=== PATIENT | female | born 1965 | race Caucasian/White ===

== ENCOUNTER 2016-07-30 10:38 | Emergency (ER) | payer BC ==
--- NOTE | 2016-07-30 11:52 | RAD ---
HISTORY: Knee pain, left knee pain, fall COMPARISONS: July 02, 2015 VIEWS: 2, Frontal and lateral views of the left knee FINDINGS: BONE DENSITY: Normal. BONES: There is no displaced fracture. JOINTS: There is mild to moderate tricompartmental osteoarthritis. There is no suprapatellar joint effusion or lipohemarthrosis. ALIGNMENT: There is no dislocation. SOFT TISSUES: Unremarkable. OTHER FINDINGS: None. IMPRESSION: OSTEOARTHRITIS. NO ACUTE OSSEOUS INJURY. IF SYMPTOMS PERSIST, RECOMMEND REPEAT IMAGING.
--- NOTE | 2016-07-30 11:55 | RAD ---
INDICATION: Left hip pain COMPARISON: None TECHNIQUE: An AP view of the pelvis and AP views of the hip in neutral and abducted position were obtained FINDINGS: Bones: There are no acute bony findings. Joint spaces: There is minor symmetric narrowing about the hip joint spaces with mild convexity along the lateral femoral head and neck predisposing to impingement. There is minor spurring about the medial aspect of the femoral head. SI joints/symphysis: The SI joints and symphysis are intact. Other: None IMPRESSION: MILD OSTEOARTHRITIC CHANGES ABOUT THE LEFT HIP.
[2016-07-30 12:54] VITALS: BP 153/75
--- NOTE | 2016-07-30 21:06 | ED ---
Jez Snowden Billy, scribed for Chino Herron MD on 07/30/16 at 1050 . Lower Extremity - HPI Summary HPI Summary: Patient is a 51 year-old female coming to [facility] for evaluation of left hip pain after a simple mechanical fall approximately 20 minutes prior to arrival to the ED. She states that she slipped on mud and hit her hip on the pavement. Denies LOC. The pain radiates from the left hip to her knee and ankle. Range of motion is limited secondary to pain. Severity 8/10. - History of Current Complaint Chief Complaint: EDExtremityLower Stated Complaint: FALL,LEFT HIP PAIN Time Seen by Provider: 07/30/16 10:43 Hx Obtained From: Patient Hx Last Menstrual Period: November - going through menopause Mechanism Of Injury: Fall From A Standing Position Onset of Pain: Immediate Onset/Duration: Minutes Severity Initially: Moderate Severity Currently: Moderate Pain Intensity: 8 Pain Scale Used: 0-10 Numeric Timing: Constant Location: Is Discrete @ - Left hip radiating to knee and ankle Aggravating Factor(s): Movement Alleviating Factor(s): Rest - Allergies/Home Medications Allergies/Adverse Reactions: Allergies Allergy/AdvReac Type Severity Reaction Status Date / Time No Known Allergies Allergy Unverified 07/02/15 15:23 PMH/Surg Hx/FS Hx/Imm Hx Endocrine/Hematology History: Denies: Hx Anticoagulant Therapy, Hx Diabetes, Hx Thyroid Disease Cardiovascular History: Denies: Hx Hypertension, Hx Pacemaker/ICD Respiratory History: Denies: Hx Asthma, Hx Chronic Obstructive Pulmonary Disease (COPD) GI History: Denies: Hx Ulcer Sensory History: Denies: Hx Hearing Aid Psychiatric History: Denies: Hx Panic Disorder - Surgical History Surgery Procedure, Year, and Place: CHolecystectomy 2007. tubal ligation. C SECTION X5 Infectious Disease History: Denies: Hx Hepatitis, Hx Human Immunodeficiency Virus (HIV), History Other Infectious Disease, Traveled Outside the [place] in Last 30 Days - Family History Family History: Mother with history of hypertension. Father at age 60 with history of brain tumor and stroke. The patient has four siblings, come with history of hypertension. - Social History Alcohol Use: None Substance Use Type: Reports: None Smoking Status (MU): Former Smoker Review of Systems Negative: Fever Positive: Arthralgia All Other Systems Reviewed And Are Negative: Yes Physical Exam - Summary Physical Exam Summary: VITAL SIGNS: Reviewed. GENERAL: Patient is an obese female who is lying comfortable in the stretcher. Patient is not in any acute respiratory distress. HEAD AND FACE: No signs of trauma. No ecchymosis, hematomas or skull depressions. No sinus tenderness. EYES: PERRLA, EOMI x 2, No injected conjunctiva, no nystagmus. EARS: Hearing grossly intact. Ear canals and tympanic membranes are within normal limits. MOUTH: Oropharynx within normal limits. NECK: Supple, trachea is midline, no adenopathy, no JVD, no carotid bruit, no c- spine tenderness, neck with full ROM. CHEST: Symmetric, no tenderness at palpation LUNGS: Clear to auscultation bilaterally. No wheezing or crackles. CVS: Regular rate and rhythm, S1 and S2 present, no murmurs or gallops appreciated. ABDOMEN: Soft, non-tender. No signs of distention. No rebound no guarding, and no masses palpated. Bowel sounds are normal. EXTREMITIES: Left hip did not show any ecchymosis, deformity, or visible shortening of left leg. Patient's pulses in the lower extremities are positive and strong. There is decreased ROM in the left hip secondary to pain. NEURO: Alert and oriented x 3. No acute neurological deficits. Speech is normal and follows commands. SKIN: Dry and warm Triage Information Reviewed: Yes Vital Signs On Initial Exam: Initial Vital Signs Temp 99.5 F 07/30/16 10:46 Pulse 80 07/30/16 10:46 Resp 20 07/30/16 10:46 BP 180/94 07/30/16 10:46 Pulse Ox 98 07/30/16 10:46 Vital Signs Reviewed: Yes Diagnostics - Laboratory Lab Statement: Any lab studies that have been ordered have been reviewed, and results considered in the medical decision making process. - Radiology Hip/Pelvis XRay Xray Interpretation: No Acute Changes Radiology Interpretation Completed By: Radiologist - MILD OSTEOARTHRITIC CHANGES ABOUT THE LEFT HIP. Knee XRay Xray Interpretation: No Acute Changes Radiology Interpretation Completed By: Radiologist - NO ACUTE OSSEOUS INJURY. IF SYMPTOMS PERSIST, RECOMMEND REPEAT IMAGING. Re-Evaluation - Re-Evaluation First Eval Re-Evaluation Time: 12:07 Comment: Imaging reviewed. Lower Extremity Course/Dx - Course Assessment/Plan: Patient is a 51 year-old female coming to [facility] for evaluation of left hip pain after a simple mechanical fall approximately 20 minutes prior to arrival to the ED. She states that she slipped on mud and hit her hip on the pavement. Denies LOC. The pain radiates from the left hip to her knee and ankle. Range of motion is limited secondary to pain. Severity 8/10. X-rays of the knee and pelvis show no acute osseous injury, no fractures or dislocation. The patient declined any pain medications. After the x-rays were negative, the patient was ambulated with minimal pain. The patient reports that the pain is only 1/10, and she has a good and steady walk. At this point I discussed my findings and test results with the patient and the need to follow up with PCP. She was instructed to return to the ED if the pain increases or if she develops fever, nausea, vomiting, or any other symptoms. She understands and agrees. - Diagnoses Provider Diagnoses: Contusion, hip, Hip pain Discharge - Discharge Plan Condition: Stable Disposition: HOME Patient Education Materials: Hip Contusion (ED) Referrals: Juan C Kim, POWER SUPERINTENDENT [Primary Care Provider] - The documentation as recorded by the Jez hagen Billy accurately reflects the service I personally performed and the decisions made by me, Chino Herron MD.
== END 2016-07-30 12:53 | disposition home or self-care (01) ==
LOC: ED 10:38
DX: S70.00XA Contusion of unspecified hip, initial encounter (principal); M25.552 Pain in left hip; M25.50 Pain in unspecified joint; Z87.891 Personal history of nicotine dependence; W19.XXXA Unspecified fall, initial encounter; Y93.9 Activity, unspecified; Y92.9 Unspecified place or not applicable; Y99.9 Unspecified external cause status
CPT/HCPCS: 99282

== ENCOUNTER 2018-02-25 10:09 | Inpatient (IN) | payer BC ==
--- NOTE | 2018-02-17 17:06 | HP ---
HISTORY AND PHYSICAL: DATE OF ADMISSION/SURGERY: 02/26/18 DATE OF OFFICE VISIT: 02/17/18 SURGEON: Kristi White MD * (DICTATED BY ADAIR RUIZ) PROCEDURE: Right total knee arthroplasty. CHIEF COMPLAINT: Right knee pain. HISTORY OF PRESENT ILLNESS: Ms. Murphy is a 52-year-old female with continued complaints of right knee pain. She has failed conservative treatment and elected to proceed with a right total knee arthroplasty. PAST MEDICAL HISTORY: PTSD, anxiety, Lima's esophagus, and high cholesterol. PAST SURGICAL HISTORY: x5 and cholecystectomy. CURRENT MEDICATIONS: 1. Diclofenac sodium gel. 2. Sucralfate 1 g daily. 3. Oxycodone 5 mg as needed. 4. Pantoprazole sodium 40 mg daily. 5. Baclofen 10 mg daily. 6. Valium 10 mg. ALLERGIES: No known drug allergies. FAMILY HISTORY: Diabetes and stroke. SOCIAL HISTORY: She is a 52-year-old female. She lives with her . She does not smoke or use drugs. REVIEW OF SYSTEMS: A complete 14-point review of systems was reviewed with the patient. It was positive for GERD. She denies history of DVT, PE, hepatitis, HIV, or anesthesia problems. PHYSICAL EXAMINATION GENERAL: She is well developed, well nourished, in no acute distress. VITAL SIGNS: She stands 5 feet 6 inches tall, weighs 265 pounds. Her blood pressure is 128/88 and heart rate is 60. HEENT: Normocephalic, atraumatic. NECK: Supple. No palpable lymph nodes. PULMONARY: The lungs are clear to auscultation bilaterally. CARDIO: Regular rate and rhythm. Strong S1, S2. ABDOMEN: Soft, nontender, nondistended. NEUROLOGICAL: She is alert and oriented x3. MUSCULOSKELETAL: Right lower extremity: The skin is intact. There are no open wounds or abrasions. There is some tenderness over the medial and lateral joint line. There is some moderate joint effusion. Range of motion is 10 to 120 degrees of flexion with patellofemoral crepitus. She has 2+ dorsalis pedis pulse, intact sensation and her lower extremity muscle group strengths are intact at 5/5. ASSESSMENT AND PLAN: Ms. Murphy is a 52-year-old female with end-stage osteoarthritis of the right knee. She has failed conservative treatment and elected to proceed with a right total knee arthroplasty. Her surgery is scheduled for 02/26/[address] White discussed the risks and benefits of the surgery at today's visit and all of her questions were answered. She will follow up with Dr. White 2 weeks after the surgery. ADAIR RUIZ [id number]/[id number] #: [id number] [facility]IAL HOSPITALEdgardo
[~2018-02-25 10:09] MED LIST: Buffered Lidocaine 0.9% SYRIN* 5 ML/SYR SYRINGE INTRADERM ONE; Lactated Ringers 1000 ML Bag* 1,000 ML IV SCH
--- OUTSIDE RECORDS SUMMARY | 2018-02-25 10:12 | XMS REPORT | Continuity of Care Document ---
:1965 External Reference #:[id number] Author Name FABIEN Gonzalez Address [address] [place] [address] Care Team Providers Name Role Phone FABIEN Gonzalez Care Team Information Sales Associate Fishing Unavailable Payers Type Date Identification Numbers Payment Provider Subscriber Effective: Policy Number: [id number] Chaka CEDILLO [employer] 2017 Group Name: [place] [address] PayID: [id number] DELILAH Alcantara [address] Expires: 2017 Policy Number: [id number] Chaka JUVENTINO [employer] Group Name: Shaina [address] PayID: [id number] DELILAH Alcantara [address] Onset: 2009 Policy Number: [id number] [employer] Madelaine Sims [place]ID: [id number] [place] [address] Effective: 2010 Policy Number: Medicaid/Computer [employer] Madelaine Sims [id number] Expires: 2015 Group Name: 1 [id number] PayID: [id number] [place] [address] Advance Directives Description No Information Available Problems Description No Information Family History Date Family Member(s) Problem(s) Comments Father Alcoholism Father Hypertension Father CVA Father due to Stroke () - age 57 Father due to () Alcoholism Mother Obesity Mother Osteoporosis Mother CVA Mother Atrial Fibrillation : Mother due to Stroke Infections from wounds (03/2011) after a fall during a stroke, sepsis.... age 73 Mother Depression Children 3 Daughter1: cholecystectomy Daughter2: Anemia with iron transfusions Daughter3: Possible AVM? Siblings 3 Sister1: Cardiac ablation for AFib Brother1: Hip replacement Brother2: drug addict Social History Type Date Description Comments Sex Unknown Marital Status Lives With Spouse Diet Healthy, Well Balanced eats a variety of foods. 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 Uses CBD oil 1-2X/day as well which helps. Enjoy Exercising Enjoys exercising doing exercises prior to surgery Allergies, Adverse Reactions, Alerts Description No Known Drug Allergies Medications Medication Date Status Form Strength Qnty SIG Indications Ordering Provider Nystatin 02/11 Active Cream [id number] 30gm apply small Shawnt / amount to Oralia Kim, rash three RECREATION CLERK-C times daily until resolved Oxycodone HCL 02/05 Active Tablets 5mg 45tab 1 tab by M17.0 s mouth q4hr Oralia Kim, as needed RECREATION CLERK-C pain Diazepam 01/19 Active Tablets 10mg 60tab take 1 F41.9 s tablet twice Oralia Kim, daily for RECREATION CLERK-C anxiety/ptsd Voltaren 07/30 Active Gel 1% 100un apply a pea M17.12 its sized amount Oralia Kim, of gel to RECREATION CLERK-C each knee four times a day if needed for pain Sucralfate Active Tablets 1gm 60tab take one Shawnti s tablet by Oralia Kim, twice daily RECREATION CLERK-C on an empty stomach Pantoprazole Active Tablets 40mg 60tab one by mouth Shawnti / DR s twice daily Oralia Kim RECREATION CLERK-C Baclofen Active Tablets 5mg 60tab one by mouth Shawnti / s twice daily Oralia Kim RECREATION CLERK-C Hydrocodone-Acet 02/03 Hx Tablets 5-325mg 45tab 1 by mouth M17.0 Shawnti aminophen /2017 s every 4 Oralia Kim, - hours if RECREATION CLERK-C 02/05 needed for pain Valium 12/30 Hx Tablets 5mg 30tab take 1 F41.9 Brian s tablet every [place] - 8 hours for MD 01/19 severe anxiety Clonazepam 11/27 Hx Tablets 0.5mg 60tab take one F41.9 Shawnti s tablet by Oralia Kim, - mouth twice RECREATION CLERK-C 01/19 a day for anxiety; maximum daily dose=2 Tramadol HCL 09/04 Hx Tablets 50mg 90tab take one M17.0 Shawnti s tablet by Oralia Kim, - mouth every RECREATION CLERK-C 02/03 four hours /2017 if needed for pain Naprosyn 02/19 Hx Tablets 500mg 30tab 1 by mouth M17.9 Shawnti s twice a day Oralia Kim, - for knee [employer]CREATION CLERK-C 09/03 pain Omeprazole 02/19 Hx Capsules 20mg 90cap 1 by mouth M17.[address] s every day Oralia Kim, - RECREATION CLERK-C 09/04 Xanax 02/19 Hx Tablets 1mg 30tab take one F41.9 nt s tablet by Oralia Kim, - mouth twice RECREATION CLERK-C 11/27 a day needed for anxiety maximum daily dose=2 Zofran Odt 02/18 Hx Tablets 4mg 30tab dissolve one Dispers s tab in mouth Oralia Kim, - every 6-8 RECREATION CLERK-C 08/ hours needed nausea Amoxicillin/Clav 02/18 Hx Tablets 875-125mg 20tab 1 by mouth J01.90 wnti ulanate s twice a day Oralia Kim, Potassium - for 10 days RECREATION CLERK-C 02/28 infection Tramadol HCL 07/30 Hx Tablets 50mg 60tab Take One M17.12 nt s Tablet By Oralia Kim, - Mouth Four RECREATION CLERK-C 05/09 Times A Day as Needed For Pain; Maximum Daily Dose=4 Minocycline HCL 04/04 Hx Capsules 50mg 60cap 1 po bid for 695.3 s one week Oralia Kim, - then take po RECREATION CLERK-C 02/18 Potassium 05/09 Hx Tablets 10Meq 60tab 2 po daily Shawnti Chloride ER s while on Oralia Julio, - lasix(furose RECREATION CLERK-C 04/04 mide) /2011 Furosemide 05/07 Hx Tablets 20mg 60tab 1 or 2 po 782.3 Shawnt s daily for Oralia Kim, - swelling RECREATION CLERK-C 02/18 Percocet 04/23 Hx Tablets 10-325mg 60six 1 po q4-6hr 724.2 ty prn pain Oralia Julio, - RECREATION CLERK-C 04/04 Senna S 04/23 Hx Tablets 8.6-50mg 60tab 1 or 2 po s bid for Oralia Kim, - constipation RECREATION CLERK-C 04/04 Cyclobenzaprine 04/19 Hx Tablets 10mg 60tab take 1/2 to 724.2 Shawnti HCL s 1 tablet Oralia Julio, - every 8 RECREATION CLERK-C 02/18 hours needed for muscle spasm. Gabapentin 04/08 Hx Capsules 300mg 60cap 1 po tid for 724.2 Shawnt s nerve pain Oralia Kim, - RECREATION CLERK-C 04/04 Prednisone 04/08 Hx Tablets 10mg 42tab take 6 tabs 724.2 s by mouth Oralia Kim, - today and RECREATION CLERK-C 04/23 tomorrow decrease by one tab every other day then 10mg by mouth for two days, then stop No Work 03/07 Hx unable to 724.2 work due to Oralia Julio, - back injury RECREATION CLERK-C 03/22 Physical Therapy 03/07 Hx eval and 724.2 nt treat low Oralia Kim, - back and RECREATION CLERK-C 03/22 sciatic pain, mild radiculopath y Wellbutrin XL 03/07 Hx Tablets 150mg 30tab 1 po qd for 724.2 ER 24HR s depression, Oralia Kim, - take with RECREATION CLERK-C 04/04 Cy Hydrocodone/Acet 02/11 Hx Tablets 5-325mg 40for 1 or 2 po 724.2 Shawnti aminophen ty q6hr prn Oralia Kim, - severe pain RECREATION CLERK-C 04/23 Return To Work 01/15 Hx may return 724.2 to work Oralia Kim, - without RECREATION CLERK-C 03/22 Cymbalta 01/[address] 60mg 90cap 1 po qd 724.2 Part s Oralia Kim, - RECREATION CLERK-C 04/04 Return To Work 12/06 Hx light duty, no lifting Oralia Kim, - over 20 lbs RECREATION CLERK-C 01/15 Flexeril 11/22 Hx Tablets 10mg 60tab 1/2 to 1 724.2 s pill q8hr Oralia Kim, - prn muscle RECREATION CLERK-C 04/19 Cymbalta 11/[address] 30mg 90cap one po daily 724.2 Part s for back Oralia Kim, - pain RECREATION CLERK-C 01/01 Xanax 11/08 Hx Tablets 0.5mg 60tab 1/2 to 1 by F41.9 s mouth twice Oralia Kim, - a day as RECREATION CLERK-C 02/19 anxiety Hydrocodone/Acet 11/08 Hx Tablets 5-325mg 40for 1 or 2 po 724.2 wnti aminophen ty q6hr prn Oralia Kim, - severe pain RECREATION CLERK-C 12/06 Naprosyn Ec 11/08 Hx Tablets 500mg 60tab 1 po bid 724.2 nt s with food Oralia Kim, - for pain, RECREATION CLERK-C 04/04 stop taking if stomach pain develops No Work 11/08 Hx unable to 724.2 work due to Oralia Kim, - injury, will RECREATION CLERK-C 03/07 evaluate 2 weeks Out Of Work 10/31 Hx Consulted dx Lumbago Rufina Until PT Erickson Cotto, 03/22 Need M.D. PhysicalTher apy Re-eval before Nov.14 [place] 10/29 Hx Tablets 5-325mg 28tab one to two Montserrat s tabs po q 12 Mick, - hrs prn M.DAbiola, 12/06 severe pain R.D. /2009 Out Of Work 10/26 Hx Patient has Filiberto Until Nov 01 a Physical Carmen - Therapy M.DAbiola 03/22 appointment /10/30 and has a refferal to the pain clinic [facility] 10/26 Hx Tablets 5mg 30tab i to ii tabs s po tiLashell Cuevas M.D. 11/22 Ibuprofen 10/19 Hx 724.2 Helen /2010 Luis A - PA-C 11/08 No Work Until 10/19 Hx 724.2 Filiberto Oct 26 Lashell Morales M.D. 11/08 Physical Therapy 10/19 Hx eval and 724.2 [place] /2009 treat low R. Storm, - back RECREATION CLERK-C 03/22 pain/strain, sciatica One Cane 10/19 Hx need to use 724.2 cane untill Carmen, - back pain M.D. 03/22. /2010 Amoxicillin 03/31 Hx Tablets 875mg 28tab One PO bid 461.8 Johanna s For 14 Days A. Lashell Barton, 10/29 F.N.P.C. /2009 Diazepam 08/02 Hx 10mg 30uni use 1 tab qd ts prn Lashell Alexandra M.DAbiola 10/29 Effexor XR 08/02 Hx Capsules 75mg 60cap Two Tabs qd s Lashell Alexandra M.DAbiola 03/31 Paxil 05/17 Hx Tablets 20mg 60tab One To Two s Tabs A Day Lashell Alexandra M.DAbiola 03/31 Physical Exam 04/15 Hx Patient Has Zuleika Been Healthy Ibrahima, - In The Past M.D. 03/31 And Valium 04/11 Hx Tablets 5mg 20tab 1-2 tabs bid s Cruzito, - CHILD CARE ASSISTANT 10/29 Paxil 02/16 Hx 20mg 30uni use 1/2 to 1 ts tab a day Lashell Alexandra M.D. 03/31 Ativan 02/10 Hx Tablets O.5 mg 8tabs 1 Tab PO bid prn Anxiety P. - Blegen, 03/31 M.DAbiola /2005 Omeprazole Hx Capsules 40mg 0ne by mouth M17.9 Unknown /0000 DR bid before - meals 10/15 Medications Administered in Office Medication Date Status Form Strength Qnty SIG Indications Ordering Provider TB,Intradermal Administered Injection Lab and (PPD, [place]) 003 Office Services Immunizations CPT Code Status Date Vaccine Lot # [id number] Given 02/19/2016 Tdap (Adacel) [id number] 20985 Given 12/02/2002 Meningococcal Polysaccharide Vaccine 87232 Given 12/02/2002 Meningococcal Polysaccharide Vaccine 03444 Given 11/28/2002 Hep B Vaccine Adult, 3 Dose age >20 yrs 04951 Refused 02/19/2016 Influenza Virus Vaccine, Quadrivalent, 3 Yr > Quad , Preserv Free Vital Signs Date Vital Result Comment 02/11/2018 11:41am Weight 268.00 lb Weight 121.565 kg BP Systolic 118 mmHg BP Diastolic 76 mmHg Heart Rate 84 /min Body Temperature 97.9 F Respiratory Rate 16 /min Height 66.5 inches 5'6.50" BMI (Body Mass Index) 42.6 kg/m2 O2 % BldC Oximetry 97 % 01/19/2018 2:07pm Weight 271.00 lb Weight 122.926 kg BP Systolic 120 mmHg BP Diastolic 82 mmHg Heart Rate 60 /min Body Temperature 98.6 F Respiratory Rate 16 /min Height 67 inches 5'7" BMI (Body Mass Index) 42.4 kg/m2 O2 % BldC Oximetry 98 % 12/30/2017 4:48pm Weight 275.00 lb Weight 124.740 kg BP Systolic 164 mmHg BP Diastolic 80 mmHg Heart Rate 77 /min Body Temperature 97.3 F Respiratory Rate 16 /min O2 % BldC Oximetry 96 % 11/27/2017 1:47pm Weight 278.00 lb Weight 126.101 kg BP Systolic 122 mmHg BP Diastolic 80 mmHg Heart Rate 74 /min Body Temperature 98.2 F Respiratory Rate 16 /min Height 67 inches 5'7" BMI (Body Mass Index) 43.5 kg/m2 O2 % BldC Oximetry 96 % 09/10/2017 8:47am Weight 289.00 lb Weight 131.090 kg BP Systolic 132 mmHg BP Diastolic 80 mmHg Heart Rate 88 /min Body Temperature 97.6 F Respiratory Rate 16 /min Height 66.5 inches 5'6.50" BMI (Body Mass Index) 45.9 kg/m2 09/04/2017 10:36am Weight 290.00 lb Weight 131.544 kg BP Systolic 126 mmHg BP Diastolic 96 mmHg Heart Rate 66 /min Body Temperature 98.1 F Respiratory Rate 20 /min Height 67 inches 5'7" BMI (Body Mass Index) 45.4 kg/m2 O2 % BldC Oximetry 96 % 06/22/2017 10:59am Weight 304.00 lb Weight 137.894 kg BP Systolic 134 mmHg BP Diastolic 90 mmHg Heart Rate 72 /min Body Temperature 97.7 F Respiratory Rate 16 /min O2 % BldC Oximetry 98 % 06/05/2017 1:45pm Weight 293.00 lb Weight 132.905 kg BP Systolic 138 mmHg BP Diastolic 90 mmHg Heart Rate 74 /min Body Temperature 97.7 F Respiratory Rate 16 /min Height 67 inches 5'7" BMI (Body Mass Index) 45.9 kg/m2 O2 % BldC Oximetry 95 % 02/19/2017 1:55pm Weight 295.00 lb Weight 133.812 kg BP Systolic 140 mmHg BP Diastolic 100 mmHg Heart Rate 72 /min Body Temperature 98.0 F Respiratory Rate 14 /min Height 66.5 inches 5'6.50" BMI (Body Mass Index) 46.9 kg/m2 02/19/2016 2:13pm Weight 291.00 lb Weight 131.998 kg BP Systolic 140 mmHg BP Diastolic 94 mmHg Heart Rate 91 /min Body Temperature 98.3 F Respiratory Rate 12 /min Height 66 inches 5'6" BMI (Body Mass Index) 47.0 kg/m2 O2 % BldC Oximetry 98 % 08/17/2015 9:43am Weight 294.00 lb Weight 133.358 kg BP Systolic 148 mmHg BP Diastolic 94 mmHg Heart Rate 76 /min Body Temperature 98.1 F 07/31/2015 11:00am Weight 300.00 lb Weight 136.080 kg Heart Rate 83 /min Body Temperature 98.8 F Height 67 inches 5'7" BMI (Body Mass Index) 47.0 kg/m2 O2 % BldC Oximetry 98 % 04/04/2011 12:02pm Weight 298.00 lb Weight 135.173 kg BP Systolic 124 mmHg BP Diastolic 98 mmHg Heart Rate 76 /min 05/09/2010 11:10am Weight 287.00 lb Weight 130.183 kg BP Systolic 150 mmHg BP Diastolic 90 mmHg Heart Rate 72 /min 05/07/2010 3:54pm Weight 288.00 lb Weight 130.637 kg BP Systolic 140 mmHg BP Diastolic 90 mmHg Heart Rate 100 /min Body Temperature 98.3 F O2 % BldC Oximetry 99 % AT Room Air 04/23/2010 10:48am Weight 289.00 lb Weight 131.090 kg BP Systolic 138 mmHg BP Diastolic 100 mmHg Heart Rate 96 /min Body Temperature 97.8 F 04/08/2010 9:21am Weight 289.00 lb Weight 131.090 kg BP Systolic 140 mmHg BP Diastolic 100 mmHg Heart Rate 72 /min Body Temperature 98.8 F 03/07/2010 10:57am Weight 291.00 lb Weight 131.998 kg BP Systolic 154 mmHg BP Diastolic 94 mmHg Heart Rate 92 /min Body Temperature 98.2 F 01/15/2010 10:18am Weight 287.00 lb Weight 130.183 kg BP Systolic 140 mmHg BP Diastolic 100 mmHg Heart Rate 96 /min 12/06/2009 9:01am Weight 289.00 lb Weight 131.090 kg BP Systolic 150 mmHg BP Diastolic 80 mmHg Heart Rate 80 /min 11/22/2009 9:31am Weight 283.00 lb Weight 128.369 kg BP Systolic 150 mmHg BP Diastolic 98 mmHg Heart Rate 84 /min 11/08/2009 10:46am Weight 282.00 lb Weight 127.915 kg BP Systolic 120 mmHg BP Diastolic 82 mmHg Heart Rate 64 /min 10/19/2009 9:56am BP Systolic 130 mmHg BP Diastolic 110 mmHg Heart Rate 100 /min Body Temperature 99.2 F 03/31/2005 2:02pm Weight 231.00 lb Weight 104.782 kg BP Systolic 126 mmHg BP Diastolic 80 mmHg Heart Rate 86 /min 08/30/2002 2:40pm Weight 254.00 lb Weight 115.214 kg BP Systolic 130 mmHg BP Diastolic 82 mmHg 08/02/2002 2:43pm Weight 248.00 lb Weight 112.493 kg BP Systolic 120 mmHg BP Diastolic 70 mmHg 07/22/2002 1:53pm Weight 244.00 lb Weight 110.678 kg BP Systolic 120 mmHg BP Diastolic 80 mmHg Heart Rate 80 /min Respiratory Rate 18 /min Height 67 inches BMI (Body Mass Index) 38.2 kg/m2 Last Menstrual Period [id number] 05/17/2002 3:00pm Weight 229.00 lb Weight 103.874 kg BP Systolic 130 mmHg BP Diastolic 80 mmHg 05/02/2002 11:33am Weight 233.00 lb Weight 105.700 kg BP Systolic 130 mmHg BP Diastolic 70 mmHg 04/15/2002 2:35pm Weight 234.00 lb Weight 106.100 kg BP Systolic 102 mmHg BP Diastolic 68 mmHg Heart Rate 76 /min 03/18/2002 2:54pm Weight 227.00 lb Weight 103.000 kg BP Systolic 110 mmHg BP Diastolic 70 mmHg 02/16/2002 10:25am Weight 226.00 lb Weight 102.500 kg BP Systolic 124 mmHg BP Diastolic 80 mmHg 02/04/2002 9:29am Weight 224.00 lb Weight 101.600 kg BP Systolic 120 mmHg BP Diastolic 80 mmHg Results Test Date Facility Test Result H/L Range Note Urine Culture And [facility] Urine SEE RESULT 1 Sensitivities 8 [phone] Culture BELOW Inr/Protime [facility] Inr 0.89 N 0.77- 1.02 8 [phone] Laboratory test [facility] Partial 30.7 seconds N 26.0-36.3 finding 8 [phone] Thrombo Time PTT Urinalysis Profile [facility] Urine Color Yellow 8 [phone] Urine Appearance Cloudy Urine Specific Sharon 1.024 N 1.010-1.030 Urine pH 6.0 N 5-9 Urine Urobilinogen Negative Negative Urine Ketones Negative Negative Urine Protein Negative Negative Urine Leukocytes Negative Negative Urine Blood Negative Negative Urine Nitrite Negative Negative Urine Bilirubin Negative Negative Urine Glucose Negative Negative Type & Screen 02/17/2018 [facility] Patient Blood A Negative [phone] Type Antibody Screen NEGATIVE Liver Function 02/16/2018 [facility] Total Protein 6.5 g/dL N 6.4-8.9 Panel [phone] Albumin 3.9 g/dL N 3.2-5.2 Globulin 2.6 g/dL N 2-4 Albumin/Globulin Ratio 1.5 N 1-3 Total Bilirubin 0.40 mg/dL N 0.2-1.0 Direct Bilirubin 0.10 mg/dL N 0.03-0.18 Indirect Bilirubin 0.3 mg/dL N 0.3-1.0 Alkaline Phosphatase 177 U/L High 34-104 Alt 47 U/L N 7-52 Ast 31 U/L N 13-39 Iron & Iron Binding 02/16/2018 [facility] Iron 69 g /dL N 50-212 Capacity [phone] Unsaturated Iron Binding < 289 g/dL Total Iron Binding Capacity 304 g/dL N 250-450 Transferrin 217 mg/dL N 203-362 % Iron Saturation 23 % N 15-55 Hepatitis C Antibody 02/16/2018 [facility] HCV Index < 0.0 Index [phone] Hepatitis C Antibody Nonreactive Nonreactive Laboratory 02/16/2018 [facility] Ferritin 58.1 ng/mL N 11-307 test finding [phone] Inr/Protime 02/16/2018 [facility] Inr 0.89 N 0.77- 1.02 [phone] Laboratory 02/16/2018 [facility] Hepatitis B Negative Negative 2 test finding [phone] Core AB Total Hepatitis B 02/16/2018 [facility] Hepatitis B Not Immune Abnormal Immune Rosmery AB Titer [phone] Surface AB Hep B Surf AB Level < 3.10 mIU/mL >12 CBC Auto Diff 02/11/2018 [facility] White Blood 8.8 10^3/uL N 3.5-10.8 [phone] Count Red Blood Count 5.00 10^6/uL N 4.00-5.40 Hemoglobin 13.9 g/dL N 12.0-16.0 Hematocrit 42 % N 35-47 Mean Corpuscular Volume 83 fL N 80-97 Mean Corpuscular Hemoglobin 28 pg N 27-31 Mean Corpuscular HGB Conc 33 g/dL N 31-36 Red Cell Distribution Width 14 % N 10.5-15 Platelet Count 281 10^3/uL N 150-450 Mean Platelet Volume 10.0 fL N 7.4-10.4 Abs Neutrophils 4.7 10^3/uL N 1.5-7.7 Abs Lymphocytes 3.0 10^3/uL N 1.0-4.8 Abs Monocytes 0.6 10^3/uL N 0-0.8 Abs Eosinophils 0.4 10^3/uL N 0-0.6 Abs Basophils 0.1 10^3/uL N 0-0.2 Abs Nucleated RBC 0 10^3/uL Granulocyte % 53.7 % Lymphocyte % 34.4 % Monocyte % 6.4 % Eosinophil % 4.9 % Basophil % 0.6 % Nucleated Red Blood Cells % 0.1 Comp Metabolic Panel 02/11/2018 [facility] Sodium 137 mmol/L N 135-145 [phone] Potassium 4.4 mmol/L N 3.5-5.0 Chloride 105 mmol/L N 101-111 Co2 Carbon Dioxide 25 mmol/L N 22-32 Anion Gap 7 mmol/L N 2-11 Glucose 96 mg/dL N 70-100 Blood Urea Nitrogen 21 mg/dL N 6-24 Creatinine 1.00 mg/dL High 0.51-0.95 BUN/Creatinine Ratio 21.0 High 8-20 Calcium 9.5 mg/dL N 8.6-10.3 Total Protein 6.8 g/dL N 6.4-8.9 Albumin 3.9 g/dL N 3.2-5.2 Globulin 2.9 g/dL N 2-4 Albumin/Globulin Ratio 1.3 N 1-3 Total Bilirubin 0.50 mg/dL N 0.2-1.0 Alkaline Phosphatase 207 U/L High 34-104 Alt 56 U/L High 7-52 Ast 40 U/L High 13-39 Egfr Non- 58.2 >60 Egfr 70.5 >60 3 Laboratory test 08/12/2017 [facility] Surgical Interface SEE RESULT 4, 5 finding [phone] Order BELOW Laboratory test 08/12/2017 [facility] Clotest SEE RESULT 6 finding [phone] BELOW Lipid Profile 2017 [facility] Triglycerides 89 mg/dL 7 (Trig/Chol/HDL) [phone] Cholesterol 208 mg/dL 8 HDL Cholesterol 65.1 mg/dL 9 LDL Cholesterol 125 mg/dL 10 Laboratory test 2017 [facility] Bone Alkaline 12 g/L 11 finding [phone] Phosphatase, S Liver Function 2017 [facility] Total Protein 6.1 g/dL Low 6.4-8 Panel [phone] Albumin 3.7 g/dL N 3.2-5.2 Globulin 2.4 g/dL N 2-4 Albumin/Globulin Ratio 1.5 N 1-3 Total Bilirubin 0.30 mg/dL N 0.2-1.0 Direct Bilirubin 0.00 mg/dL Low 0.03-0.18 Alkaline Phosphatase 84 U/L N 34-104 Alt 25 U/L N 7-52 Ast 16 U/L N 13-39 Laboratory test 06/22/2017 [facility] TSH (Thyroid 4.70 mcIU/mL N 0.34-5.60 12 finding [phone] Stim Horm) Hemoglobin A1c (Glyco HGB) 5.9 % High 4.0-5.6 13 Rheumatoid Factor <10 IU/mL 0-14 14 Lipid Profile 06/22/2017 [facility] Triglycerides 363 mg/dL 15 (Trig/Chol/HDL) [phone] Cholesterol 326 mg/dL 16 HDL Cholesterol 63.6 mg/dL 17 LDL Cholesterol 190 mg/dL 18 Comp Metabolic 06/22/2017 [facility] Sodium 138 mmol/ L Low 139-145 Panel [phone] Potassium 5.0 mmol/L N 3.5-5.0 Chloride 99 mmol/L Low 101-111 Co2 Carbon Dioxide 33 mmol/L High 22-32 Anion Gap 6 mmol/L N 2-11 Glucose 89 mg/dL N 70-100 Blood Urea Nitrogen 19 mg/dL N 6-24 Creatinine 0.94 mg/dL N 0.51-0.95 BUN/Creatinine Ratio 20.2 High 8-20 Calcium 9.7 mg/dL N 8.6-10.3 Total Protein 7.1 g/dL N 6.4-8.9 Albumin 4.1 g/dL N 3.2-5.2 Globulin 3.0 g/dL N 2-4 Albumin/Globulin Ratio 1.4 N 1-3 Total Bilirubin 0.40 mg/dL N 0.2-1.0 Alkaline Phosphatase 223 U/L High 34-104 Alt 78 U/L High 7-52 Ast 39 U/L N 13-39 Egfr Non- 62.8 >60 Egfr 80.7 >60 19 CBC Auto 06/22/2017 [facility] White Blood 10.9 10^3/ uL High 3.5-10.8 Diff [phone] Count Red Blood Count 4.73 10^6/uL N 4.0-5.4 Hemoglobin 13.3 g/dL N 12.0-16.0 Hematocrit 40 % N 35-47 Mean Corpuscular Volume 85 fL N 80-97 Mean Corpuscular Hemoglobin 28 pg N 27-31 Mean Corpuscular HGB Conc 33 g/dL N 31-36 Red Cell Distribution Width 15 % N 10.5-15 Platelet Count 319 10^3/uL N 150-450 Mean Platelet Volume 9.4 um3 N 7.4-10.4 Abs Neutrophils 6.6 10^3/uL N 1.5-7.7 Abs Lymphocytes 3.0 10^3/uL N 1.0-4.8 Abs Monocytes 0.7 10^3/uL N 0-0.8 Abs Eosinophils 0.5 10^3/uL N 0-0.6 Abs Basophils 0.1 10^3/uL N 0-0.2 Abs Nucleated RBC 0 10^3/uL Granulocyte % 60.8 % N 38-83 Lymphocyte % 27.6 % N 25-47 Monocyte % 6.5 % N 0-7 Eosinophil % 4.4 % N 0-6 Basophil % 0.7 % N 0-2 Nucleated Red Blood Cells % 0.2 Urine DIP 06/05/2017 In House Lab Leukocytes neg Neg [phone] Urine Nitrites neg Neg Urobilinogen norm Norm Total Protein, Urine neg Neg Urine pH 5 5-6 Urine Blood neg Neg Specific Sharon 1.030 High 1.01-1.02 Urine Ketones neg Neg Urine Bilirubin neg Neg Urine Glucose norm Norm Laboratory 02/19/2016 [facility] TSH (Thyroid Stim 4.67 N 0.34-5.60 20 test finding [phone] Horm) mcIU/mL Lipid Profile 02/19/2016 [facility] Triglycerides 347 mg/dL N 21 (Trig/Chol/HDL [phone] ) Cholesterol 254 mg/dL N 22 HDL Cholesterol 46.4 mg/dL N 23 LDL Cholesterol 138 mg/dL N 24 Comp Metabolic Panel 02/19/2016 [facility] Sodium 134 mmol/L N 133-145 [phone] Potassium 4.2 mmol/L N 3.5-5.0 Chloride 101 mmol/L N 101-111 Co2 Carbon Dioxide 26 mmol/L N 22-32 Anion Gap 7 mmol/L N 2-11 Glucose 85 mg/dL N 70-100 Blood Urea Nitrogen 15 mg/dL N 6-24 Creatinine 0.97 mg/dL High 0.51-0.95 BUN/Creatinine Ratio 15.5 N 8-20 Calcium 9.7 mg/dL N 8.6-10.3 Total Protein 7.4 g/dL N 6.4-8.9 Albumin 4.1 g/dL N 3.2-5.2 Globulin 3.3 g/dL N 2-4 Albumin/Globulin Ratio 1.2 N 1-3 Total Bilirubin 0.40 mg/dL N 0.2-1.0 Alkaline Phosphatase 125 U/L High 34-104 Alt 31 U/L N 7-52 Ast 23 U/L N 13-39 Egfr Non- 60.8 N >60 Egfr 78.2 N >60 25 CBC Auto 02/19/2016 [facility] White Blood 12.5 10^3/ uL High 3.5-10.8 Diff [phone] Count Red Blood Count 5.30 10^6/uL N 4.0-5.4 Hemoglobin 14.9 g/dL N 12.0-16.0 Hematocrit 45 % N 35-47 Mean Corpuscular Volume 84 fL N 80-97 Mean Corpuscular Hemoglobin 28 pg N 27-31 Mean Corpuscular HGB Conc 33 g/dL N 31-36 Red Cell Distribution Width 14 % N 10.5-15 Platelet Count 303 10^3/uL N 150-450 Mean Platelet Volume 10 um3 N 7.4-10.4 Abs Neutrophils 6.7 10^3/uL N 1.5-7.7 Abs Lymphocytes 4.3 10^3/uL N 1.0-4.8 Abs Monocytes 0.8 10^3/uL N 0-0.8 Abs Eosinophils 0.6 10^3/uL N 0-0.6 Abs Basophils 0.1 10^3/uL N 0-0.2 Abs Nucleated RBC 0.01 10^3/uL N Granulocyte % 53.5 % N 38-83 Lymphocyte % 34.6 % N 25-47 Monocyte % 6.1 % N 1-9 Eosinophil % 5.2 % N 0-6 Basophil % 0.6 % N 0-2 Nucleated Red Blood Cells % 0.1 N Laboratory test 02/19/2016 [facility] Cytology SEE RESULT 26 finding [phone] BELOW HPV Rna Ww/Reflex Genotype Negative N Negative 27 Egfr (Calculated) 05/07/2010 [facility] Estimated GFR ( CALCULATED) [phone] Egfr >60 28 Egfr, -[place] Citizen >60 29 Laboratory test 05/07/2010 [facility] Brain [place]. 6.7 pg/mL 0.0-100.0 30 finding [phone] Peptide(BNP) TSH (Thyrotropin) 2.260 uIU/ml 0.350-5.500 CBC 05/07/2010 [facility] WBC 9.2 x10E3/uL 4.3-10.9 [phone] RBC 4.54 x10E6/uL 3.80-5.30 Hemoglobin 12.4 g/dL 11.8-15.8 Hematocrit 38.0 % 35.0-47.0 MCV 83.7 fl 82.0-98.0 MCH 27.3 pg Low 27.5-33.5 MCHC 32.6 g/dL 32.0-36.0 RDW 14.2 % 11.5-14.5 Platelet Count 317 x10E3/uL 130-400 MPV 11.1 fl High 6.5-10.5 Segmented Neutrophils 66.1 % 44.0-74.0 Lymphocytes 23.3 % 15.0-45.0 Monocytes 5.6 % 2.0-13.0 Eosinophils 4.7 % 0.0-6.0 Basophils 0.3 % 0.0-2.0 Neutrophil Absolute 6.1 x10E3/uL 1.4-7.0 Lymphocytes Absolute 2.1 x10E3/uL 1.0-3.4 Monocyte Absolute 0.5 x10E3/uL 0.2-1.0 Eosinophil Absolute 0.4 x10E3/uL 0.0-0.5 Basophil Absolute 0.0 x10E3/uL 0.0-0.2 Comprehensive Metabolic 05/07/2010 [facility] Glucose 95 mg /dL 70-100 [phone] BUN 11 mg/dL 4-18 Creatinine, Serum 0.71 mg/dL 0.50-1.10 Sodium 139 mmol/L 136-146 Potassium 4.4 mmol/L 3.5-5.3 Chloride 105 mmol/L 98-110 Carbon Dioxide 27 mmol/L 20-32 Albumin 4.1 g/dL 3.5-4.7 Protein, Total 7.0 g/dL 6.4-8.3 Calcium 8.9 mg/dL 8.4-10.4 Alkaline Phosphatase 122 U/L High 10-118 Sgot (Ast) 30 U/L 3-40 SGPT (Alt) 37 U/L 7-50 Bilirubin, Total 0.20 mg/dL Low 0.30-1.20 Mumps/Measles/Rubella 11/28/2002 [facility] Mumps Titer 1.48 Index 31 [phone] Igg AB Rubella Titer Igg AB 1.97 Index 32 Rubeola Titer Igg AB 1.47 Index 33 Thyroid Panel 08/30/2002 [facility] Thyroxine 7.4 g /dL 5-12 [phone] TSH 1.29 MIU/ML 0.34-5.60 Free Thyroxine 0.80 ng/dL 0.58-1.64 Laboratory test finding 07/22/2002 [facility] Hemoglobin 13.1 (607)- - Urine DIP 07/22/2002 [facility] Leukocytes NEG Neg (607)- - Urine Nitrites NEG Neg Urine pH 5 5-6 Total Protein, Urine NEG Neg Urine Glucose NORM Norm Urine Ketones NEG Neg Urobolinogen NORM Norm Urine Bilirubin NEG Neg Urine Blood NEG Neg Laboratory test 07/22/2002 [facility] Pap Smear REC'D -SEE IMAGE finding [phone] 1 SEE RESULT BELOW Name: BETHANYMADELAINE : [address]: Kristi White MD Acct: [id number] Unit: [id number] AGE: 52 Location: PAT Re02/17/18 SEX: F Status: REG REF SPEC: [id number] EUGENIA: 02/17/18-1314 [facility] [address]: Kristi White MD REQ: [id number] RECD: 02/17/18 STATUS: SUMMER SINGH DR: Juan C Kim CHILD CARE ASSISTANT _ SOURCE: URINE SPDESC: ORDERED: Urine Culture QUERIES: Urine Source: Clean Catch Procedure Result Reported Site Urine Culture Final 02/19/18- 0801 ML Organism 1 ESCHERICHIA COLI [place] Count 50-75,000 (Many) CFU/ML 1. ESCHERICHIA COLI M.I.C. RX --------- ------ Ampicillin 8 S Cefazolin <=4 S Cefepime <=1 S Ceftriaxone <=1 S Ciprofloxacin <=0.25 S Gentamicin <=1 S Levofloxacin <=0.12 S Meropenem <=0.25 S Nitrofurantoin <=16 S Tetracycline <=1 S Pipercillin/Tazobactam <=4 S Trimethoprim/Sulfamethoxazole <=20 S Amoxicillin/Clavulanic Acid 4 S Aztreonam <=1 S Contact the Microbiology Department for any additional antibiotic reporting. * ML - Main Lab . END OF REPORT DEPARTMENT OF PATHOLOGY, [address] [place] [address] Jose Carlos Beck M.D. Director [facility] # [id number] 2 Test Performed by: [address] [address] 3 Because ethnic data is not always readily available, this report includes an eGFR for both -Americans and non- Americans. The National Kidney Disease Education Program (NKDEP) does not endorse the use of the MDRD equation for patients that are not between the ages of 18 and 70, are , have extremes of body size, muscle mass, or nutritional status, or are non- or non-. According to the National Kidney Foundation, irrespective of diagnosis, the stage of the disease is based on the level of kidney function: Stage Description GFR(mL/min/1.73 m(2)) 1 Kidney damage with normal or decreased GFR 90 2 Kidney damage with mild decrease in GFR 60-89 3 Moderate decrease in GFR 30-59 4 Severe decrease in GFR 15-29 5 Kidney failure <15 (or dialysis) 4 [id number] 5 SEE RESULT BELOW Name: SIMSMADELAINE : [address]: Eden Stephen DO Acct: [id number] Unit: [id number] AGE: 52 Location: [facility] Re08/12/17 SEX: F Status: DEP REF SPEC: [id number] EUGENIA: 08/12/17-0851 [facility] DR: Eden Stephen DO REQ: [id number] RECD: 08/12/17-1243 STATUS: ISELA SINGH DR: Juan C Kim CHILD CARE ASSISTANT _ ORDERED: LEVEL 4/4 COMMENTS: [id number] FINAL DIAGNOSIS 1. Small bowel, duodenum, biopsy: -- Small bowel mucosa with normal villous architecture and no significant pathologic abnormality. 2. Stomach, antrum, biopsy: -- Gastric antral mucosa with mild patchy chronic inflammation. -- No active gastritis nor Helicobacter pylori-like organisms identified on H E microscopy. See comment. 3. Gastroesophageal junction, biopsy: --Gastroesophageal junction zone mucosa with mild reflux esophagitis. -- Focal goblet cell/intestinal metaplasia identified. -- No dysplasia identified. 4. Colon, sigmoid, biopsy: -- Hyperplastic polyp. Comment: An immunohistochemical stain for Helicobacter pylori-like organisms is pending in part 2 will be reported in an addendum. CLINICAL HISTORY 52 year old female with right upper quadrant pain status post cholecystectomy ; here for initial screening CONTINUED ON NEXT PAGE DEPARTMENT OF PATHOLOGY, [address] [place] [address] Jose Carlos Beck M.D. Director [facility] # [id number] RUN DATE: 08/13/17 [facility] LIVE PAGE 2 Patient: MADELAINE SIMS [id number] (Continued) POST-OPERATIVE DIAGNOSIS (Continued) POST-OPERATIVE DIAGNOSIS EGD: normal duodenum ? biopsy; moderate antral gastritis ? CLOtest and biopsy ; small ? cm hiatal hernia; irregular gastroesophageal junction at 42 cm ? biopsy; normal mid and proximal esophagus ? biopsy; bile reflux to fundus of stomach; colonoscopy: 5 mm sessile sigmoid polyp; scattered medium-mouthed diverticula in ascending colon, descending colon and sigmoid; small non-bleeding internal hemorrhoid; fair prep GROSS DESCRIPTION 1. The specimen is received in formalin labeled, Duodenum Biopsy, and consists of two mejía-pink irregular soft tissue fragments measuring 0.3 x 0.2 x 0.2 cm and 0.3 x 0.3 x 0.2 cm which are submitted entirely in one cassette. 2. The specimen is received in formalin labeled, Biopsy Antrum Body, and consists of two mejía irregular soft tissue fragments measuring 0.2 x 0.1 x 0.1 cm and 0.4 x 0.4 by up to 0.2 cm which are submitted entirely in one cassette. 3. The specimen is received in formalin labeled, EG Junction Biopsy, and consists of a 0.6 x 0.5 by up to 0.2 cm aggregate of mejía-pink irregular soft tissue fragments which is submitted entirely in one cassette. 4. The specimen is received in formalin labeled, Sigmoid Polyp, and consists of a 0.4 x 0.4 x 0.3 cm mejía-pink polypoid soft tissue fragment which is inked, bisected and submitted entirely in one cassette. Signed by and Reported on: Jose Carlos Beck MD 09/23 1236 END OF REPORT DEPARTMENT OF PATHOLOGY, [address] [place] [address] Jose Carlos Beck M.D. Director [facility] # [id number] 6 SEE RESULT BELOW Name: MADELAINE SIMS : [address]: Eden Stephen DO Acct: [id number] Unit: [id number] AGE: 52 Location: [facility] Re08/12/17 SEX: F Status: DEP REF SPEC: [id number] EUGENIA: 08/12/17 [facility] [address]: Eden Stephen DO REQ: [id number] RECD: 08/12/17 STATUS: SUMMER SINGH DR: Juan C Kim CHILD CARE ASSISTANT _ SOURCE: GAS ANTRUM SPDESC: ORDERED: Clotest Procedure Result Reported Site Clotest Final 08/13/17742 ML Clotest Negative * ML - Main Lab . END OF REPORT DEPARTMENT OF PATHOLOGY, [address] [place] [address] Jose Carlos Beck M.D. Director [facility] # [id number] 7 Desirable: <150 Borderline High: 150-199 High: 200-499 Very High: >500 8 Desirable: <200 Borderline High: 200-239 High: >239 9 Low: <40 Desirable: 40-60 High: >60 10 Desirable: <100 Near Optimal: 100-129 Borderline High: 130-159 High: 160-189 Very High: >189 11 REFERENCE VALUE <=14 (Premenopausal) <=22 (Postmenopausal) Test Performed by: [facility] [place][Note 2] [address] [place] [address] 12 [id number] Therapeutic target for the treatment of diabetes mellitus patients is <7% HBA1C, and in selective patients <6.0%. Please refer to [place] [employer] diabetic care guidelines for further information. 14 Performed by [facility], [address] [place] [id number] [email or web address], Shadi White MD - Lab. Director Test Performed by: [facility] [address] [place] [address] 15 Desirable: <150 Borderline High: 150-199 High: 200-499 Very High: >500 16 Desirable: <200 Borderline High: 200-239 High: >239 17 Low: <40 Desirable: 40-60 High: >60 18 Desirable: <100 Near Optimal: 100-129 Borderline High: 130-159 High: 160-189 Very High: >189 19 Because ethnic data is not always readily available, this report includes an eGFR for both -Americans and non- Americans. The National Kidney Disease Education Program (NKDEP) does not endorse the use of the MDRD equation for patients that are not between the ages of 18 and 70, are , have extremes of body size, muscle mass, or nutritional status, or are non- or non-. According to the National Kidney Foundation, irrespective of diagnosis, the stage of the disease is based on the level of kidney function: Stage Description GFR(mL/min/1.73 m(2)) 1 Kidney damage with normal or decreased GFR 90 2 Kidney damage with mild decrease in GFR 60-89 3 Moderate decrease in GFR 30-59 4 Severe decrease in GFR 15-29 5 Kidney failure <15 (or dialysis) 20 [id number] 21 Desirable <150 Borderline high 150-199 High 200-499 Very High >500 22 Desirable <200 Borderline high 200-239 High >239 23 Low <40 Desirable: 40-60 High: >60 24 Desirable: <100 mg/dL Near Optimal: 100-129 mg/dL Borderline High: 130-159 mg/dL High: 160-189 mg/dL Very High: >189 mg/dL 25 Because ethnic data is not always readily available, this report includes an eGFR for both -Americans and non- Americans. The National Kidney Disease Education Program (NKDEP) does not endorse the use of the MDRD equation for patients that are not between the ages of 18 and 70, are , have extremes of body size, muscle mass, or nutritional status, or are non- or non-. According to the National Kidney Foundation, irrespective of diagnosis, the stage of the disease is based on the level of kidney function: Stage Description GFR(mL/min/1.73 m(2)) 1 Kidney damage with normal or decreased GFR 90 2 Kidney damage with mild decrease in GFR 60-89 3 Moderate decrease in GFR 30-59 4 Severe decrease in GFR 15-29 5 Kidney failure <15 (or dialysis) 26 SEE RESULT BELOW Name: MADELAINE SIMS : [address]: Juan C Kim NP Acct: [id number] Unit: [id number] AGE: 50 Location: [facility] Re02/19/16 SEX: F Status: REG REF SPEC: [id number] EUGENIA: 02/19/16-[address] [facility] [address]: Juan C Kim NP REQ: [id number] RECD: 02/19/16 STATUS: SOUT _ ORDERED: IMAGE ANALYSIS, HPV/Thin Prep, HPV 16/18 GENE COMMENTS: [id number] FINAL DIAGNOSIS Negative for Intraepithelial lesion or Malignancy A. Ectocervical/Endocervical Specimen Adequacy: Satisfactory of evaluation Transformation zone component not identified Patient Information: HPV: High risk HPV RNA testing regardless of pap results. HPV 16/18 Genotype Reflex Actual Specimen Date: 02/19/16 Other Pertinent History: No History Given Date Time Test Result Flag (u) Normal Range 02/19/16 1508 HPV RNA RFLX GE Negative Negative The high-risk HPV types detected by the assay include: 16, 18, 31, 33, 35, 39, 45, 51, 52, 56, 58, 59, 66, and 68. Signed (signature on file) PARMINDER Alcantara(ASCP) 02/19 6268 This Pap test was evaluated with the assistance of the ThinPrep Test Imaging System. Due to cytologic findings at the synthetic department supervisor microscope, comprehensive manual rescreening by a Turkey Picker may be required. The Pap Smear is a screening test designed to aid in the detection of premalignant and malignant conditions of the uterine cervix. It is not a diagnostic procedure and should not be used as the sole means of detecting cervical cancer. Both false- positive and false- negative reports do occur. Depending on your risk status, a Pap smear should be obtained and evaluated every 1-3 years. END OF REPORT * ML=Testing performed at Main Lab DEPARTMENT OF PATHOLOGY, [address] [place] [address] Jose Carlos Beck M.D. Director [facility] # [id number] 27 The high-risk HPV types detected by the assay include: 16, 18, 31, 33, 35, 39, 45, 51, 52, 56, 58, 59, 66, and 68. 28 >59 mL/min/1.73m2 29 >59 mL/min/1.73m2 Note: Persistent reduction for 3 months or more in an eGFR <60 mL/min/1.73m2 defines CKD. Patients with eGFR values >=60 mL/min/1.73m2 may also have CKD if evidence of persistent proteinuria is present. Additional information may be found at www.kidney.org/professionals/kdoqi. 30 . Abnormal BNP values are associated with increased mortality and are independent of age, Troponin-I and the presence or absence of heart failure, renal insufficiency and ST segment deviation. The adjusted odds ratios for at 10 months at a median of 40 hours after the onset of ischemic symptoms are: Quartile Plasma BNP (pg/ml) Odds ratio Q-1 5.0 to 43.6 Reference group Q-2 43.7 to 81.2 3.8 (95% C.I., 1.1 to 3.0) Q-3 81.3 to 137.8 4.0 (95% C.I., 1.2 to 13.7) Q-4 137.9 to 1456.6 8.8 (95% C.I., 1.7 to 19.7) BNP is also associated with the risk of recurrent or new myocardial infarction, and/or new or worsening congestive heart failure. N. Engl. J. Med., 2001; 345:1014-21 31 < .90 Neg (No Immunity) .91- 1.09 Equivocal >=1.10 Positive . 32 < .90 Neg (No Immunity) .91- 1.09 Equivocal >=1.10 Positive . 33 < 0.90 Neg (No Immunity) 0.91- 1.09 Equivocal >=1.10 Positive . 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-C esophagus without dysplasia F41.9 Anxiety disorder, unspecified Office Visit 09/10/2017 8:45a Main Office Juan C Kim, Z00.00 Encntr for general RECREATION CLERK-C adult medical exam w/o abnormal findings E66.8 Other obesity Office Visit 09/04/2017 10:30a Main Office Juan C Kim, E66.8 Other obesity RECREATION CLERK-C M16.9 Osteoarthritis of hip, unspecified M17.0 Bilateral primary osteoarthritis of knee K22.70 Lima's esophagus without dysplasia Office Visit 06/22/2017 11:00a Main Office Juan C Barton M17.9 Osteoarthritis of Storm, RECREATION CLERK-C knee, unspecified M16.9 Osteoarthritis of hip, unspecified F43.10 Post-traumatic stress disorder, unspecified Z12.31 Encntr screen mammogram for malignant neoplasm of breast Z12.11 Encounter for screening for malignant neoplasm of colon K21.0 Gastro-esophageal reflux disease with esophagitis Office Visit 06/05/2017 1:30p Main Office Juan C RAbiola R03.0 Elevated Storm, RECREATION CLERK-C blood-pressure reading, w/o diagnosis of htn N39.0 Urinary tract infection, site not specified Office Visit 02/19/2017 1:45p Main Office Juan C Barton M17.9 Osteoarthritis of Storm, RECREATION CLERK-C knee, unspecified F41.9 Anxiety disorder, unspecified Office Visit 02/19/2016 2:15p Main Office Juan C Kim, Z00.00 Encntr for general RECREATION CLERK-C adult medical exam w/o abnormal findings J01.90 Acute sinusitis, unspecified Z12.31 Encntr screen mammogram for malignant neoplasm of breast Z23 Encounter for immunization Office Visit 08/17/2015 9:45a Main Office Stoneywntmary RAbiola M23.8x2 Other internal Storm, RECREATION CLERK-C derangements of left knee Office Visit 07/31/2015 11:00a Main Office Juan C Barton M17.12 Unilateral primary Storm, RECREATION CLERK-C osteoarthritis, left knee Office Visit 04/04/2011 11:30a Main Office Stoneywntmary RAbiola 847.9 Sprains & Strains Storm, RECREATION CLERK-C Unspec Site Of Back 695.3 Rosacea Office Visit 05/09/2010 11:00a Main Office Juan C Kim, RECREATION CLERK-C 782.3 Edema Office Visit 05/07/2010 3:45p Main Office Juan C Kim, RECREATION CLERK-C 724.2 Lumbago 782.3 Edema Office Visit 04/23/2010 11:00a Main Office Shawiveth Kim, RECREATION CLERK-C 724.2 Lumbago Office Visit 04/08/2010 9:00a Main Office Juan C Kim RECREATION CLERK-C 724.2 Lumbago 311 Depressive Disorder Not Elsewhere Spec Office Visit 03/07/2010 10:45a Main Office SHARIF Gonzalez-C 724.2 Lumbago 311 Depressive Disorder Not Elsewhere Spec Office Visit 01/15/2010 10:15a Main Office Juan C Kim RECREATION CLERK-C 724.2 Lumbago Office Visit 12/06/2009 9:00a Main Office Juan C Kim, RECREATION CLERK-C 724.2 Lumbago Office Visit 11/22/2009 9:15a Main Office SHARIF Gonzalez-C 724.2 Lumbago Office Visit 11/08/2009 10:30a Main Office SHARIF Gonzalez-C 724.2 Lumbago 311 Depressive Disorder Not Elsewhere Spec Office Visit 10/19/2009 10:00a Main Office ADAIR Isaacs-C 724.2 Lumbago 724.2 Lumbago Office Visit 03/31/2005 2:00p Main Office Johanna Veliz 461.8 Sinusitis Acute Mick, Other F.N.P.C. Office Visit 08/30/2002 2:30p Main Office Zuleika Alexandra, 300.02 Anxiety Disorder M.D. Generalized 311 Depressive Disorder Not Elsewhere Spec Office Visit 08/02/2002 2:30p Main Office Zuleika Alexandra, 300.02 Anxiety Disorder M.D. Generalized 311 Depressive Disorder Not Elsewhere Spec Office Visit 07/22/2002 1:45p Main Office Zuleika Alexandra, 311 Depressive Disorder M.D. Not Elsewhere Spec 300.02 Anxiety Disorder Generalized V70.0 Examination General Medical Routine AT Health Care Facility Office Visit 05/17/2002 3:00p Main Office Zuleika Alexandra, 300.02 Anxiety Disorder M.D. Generalized 311 Depressive Disorder Not Elsewhere Spec Office Visit 05/02/2002 11:15a Main Office Zuleika Alexandra, 300.02 Anxiety Disorder M.D. Generalized 726.19 Shoulder Disorders Other Spec Office Visit 04/15/2002 2:30p Main Office Zuleika Alexandra, 300.02 Anxiety Disorder M.D. Generalized Office Visit 03/18/2002 2:45p Main Office Zuleika Alexandra, 300.02 Anxiety Disorder M.D. Generalized Office Visit 02/16/2002 10:15a Main Office Zuleika Alexandra, 300.02 Anxiety Disorder M.D. Generalized Office Visit 02/04/2002 9:30a Main Office Zuleika Alexandra, 300.02 Anxiety Disorder M.D. Generalized Plan of Treatment 02/11/2018 - Juan C Kim, [facility]-CZ01.818 Encounter for other preprocedural examinationComments:Labs and EKG reviewed , elevation in liver enzymes due to increased Tramadol dosing, Hepatic ultrasound is normal and enzymes are returning to baseline now that she is off tramadol. Medically stable for planned procedure, average risk for age. Would suggest avoiding medications that are toxic to the liver.M54.5 Low back painNew Xrays:Lumbosacral Spine, 4 Views, Ordered: 02/11/18Comments:XRays ordered
--- OUTSIDE RECORDS SUMMARY | 2018-02-25 10:13 | XMS REPORT | Continuity of Care Document ---
:1965 External Reference #:[id number] Author Name Yun Snell Care Team Providers Name Role Phone Juan C Kim NP Primary Care Physician Unavailable Payers Type Date Identification Numbers Payment Provider Subscriber Policy Number: [id number] [employer] Number: [id number] [address] [address] PayID: [id number] [place] [address] Advance Directives Description No Information Available Problems Date Description Provider Status Onset: 07/10/2017 Localized, primary osteoarthritis Kristi White M.D. Active Onset: 11/16/2017 Localized, primary osteoarthritis of the Kristi White M.D. 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 days Diclofenac / Active Gel 1% apply 2 Unknown Sodium 0000 grams to affected area twice daily Sucralfate / Active Tablets 1gm SwrosanatrNiurka mason M.D. Tablets / Active Tablets 4mg 1 tab by Unknown 0000 Dispers mouth every 6 hours as needed nausea Pantoprazole / Active Solution 40mg 1 by mouth Unknown Sodium 0000 Rec every day Baclofen / Active Tablets 10mg Niurka Pearson M.D. Valium / Active Tablets 10mg 1 tablet Unknown 0000 by mouth 30 minutes before mri Oxycontin 0000/ Active Tab ER 12H 5mg take one Unknown 0000 Abuse-Det by mouth every 4 hours as needed for pain Naproxen Sodium // Hx Tablets ER 500mg take one Unknown ER 0000 - 24HR /tablet 08/26/ daily by 2018 mouth as needed for pain, if pain is severe, you may take up to 2 pills daily Acetaminophen / Hx Tablets 500mg 1-2 tabs Unknown 0000 - 3x a day 08/26/ as needed 2017 Ativan / Hx Tablets 1mg one tab po Unknown 0000 - Q12h 2017 Ativan / Hx Tablets 1mg one tab po Unknown 0000 - Q12h 2017 Omeprazole / Hx Capsules 20mg Storm, 0000 - DR Irizarry, 2017 Tramadol HCL / Hx Tablets 50mg 400 mg a Unknown 0000 - day 2017 Xanax / Hx Tablets 1mg take 1/2 Unknown 0000 - to 1 01/26/ tablet by 2018 mouth two times a day as needed maximum daily dose=two tablets Medications Administered in Office Medication Date Status Form Strength Qnty SIG Indications Ordering Provider Records Fee Administered Injection Kristi Bruno White M.D. Synvisjudy Or Administered Injection Kristi Synvisc-One Bruno White M.D. Injection 1 MG Synvisc Or Administered Injection Kristi Synvisc-One Bruno White M.D. Injection 1 MG Synvisc Or Administered Injection Kristi Synvisc-One Bruno White M.D. Injection 1 MG Synvisc Or Administered Injection Kristi Synvisc-One Brnuo White M.D. Injection 1 MG Synvisc Or Administered Injection Kristi Synvisc-One Bruno White M.D. Injection 1 MG Synvisc Or Administered Injection Kristi Synvisc-One Bruno White M.D. Injection 1 MG Depomedrol Administered Injection Kristi 40MG 018 Halley White Depomedrol Administered Injection Kristi 40MG 018 Halley White Depomedrol Administered Injection Kristi 40MG 018 Halley White Depomedrol Administered Injection Kristi 40MG 018 Halley White Immunizations Description No Information Available Vital Signs Date Vital Result Comment 02/17/2018 10:37am Height 66.5 inches 5'6.50" Weight 264.00 lb Heart Rate 68 /min BP Systolic 128 mmHg BP Diastolic 88 mmHg BMI (Body Mass Index) 42.0 kg/m2 01/27/2018 7:59am Height 66.50 inches 5'6.50" Weight 269.00 lb Heart Rate 100 /min BP Systolic 128 mmHg BP Diastolic 88 mmHg Body Temperature 98.3 F Pain Level 8 BMI (Body Mass Index) 42.8 kg/m2 11/16/2017 9:46am Height 66 inches 5'6" Weight 277.00 lb Heart Rate 80 /min BP Systolic 138 mmHg BP Diastolic 90 mmHg BMI (Body Mass Index) 44.7 kg/m2 10/21/2017 9:58am Height 66 inches 5'6" Weight 277.00 lb BP Systolic 142 mmHg BP Diastolic 91 mmHg Respiratory Rate 16 /min Pain Level 4 BMI (Body Mass Index) 44.7 kg/m2 10/14/2017 10:06am Height 66 inches 5'6" Weight 281.00 lb Heart Rate 66 /min BP Systolic Sitting 130 mmHg BP Diastolic Sitting 84 mmHg Respiratory Rate 16 /min Pain Level 5 BMI (Body Mass Index) 45.3 kg/m2 10/07/2017 10:00am Height 66 inches 5'6" Weight 279.00 lb BP Systolic 124 mmHg BP Diastolic 80 mmHg Body Temperature 97.5 F BMI (Body Mass Index) 45.0 kg/m2 09/14/2017 8:41am Height 66 inches 5'6" Weight 289.00 lb BP Systolic 128 mmHg BP Diastolic 84 mmHg Body Temperature 97.6 F Pain Level 6 BMI (Body Mass Index) 46.6 kg/m2 08/26/2017 9:52am Height 66 inches 5'6" Weight 295.00 lb BP Systolic Sitting 148 mmHg BP Diastolic Sitting 90 mmHg Respiratory Rate 16 /min Body Temperature 97.0 F Pain Level 8 BMI (Body Mass Index) 47.6 kg/m2 07/10/2017 11:49am Height 66 inches 5'6" Weight 300.00 lb Heart Rate 50 /min Respiratory Rate 16 /min Body Temperature 98.2 F Pain Level 7 BMI (Body Mass Index) 48.4 kg/m2 07/03/2017 8:17am Height 66 inches 5'6" Weight 306.00 lb Heart Rate 70 /min BP Systolic 158 mmHg BP Diastolic 98 mmHg Respiratory Rate 16 /min Body Temperature 97.7 F Pain Level 8 BMI (Body Mass Index) 49.4 kg/m2 Results Test Date Facility Test Result H/L Range Note Inr/Protime 02/17/2018 [facility] Inr 0.89 N 0.77-1.[address] [place] [address] [phone] Laboratory test 02/17/2018 [facility] Partial 30.7 seconds N 26.0-36.[address] [facility] [address] [place] [address] PTT [phone] Urinalysis 02/17/2018 [facility] Urine Color Yellow Profile [facility] [address] [place] [place] [address] [phone] Urine Appearance Cloudy Urine Specific [place] 1.024 N 1.010-1.030 Urine pH 6.0 N 5-9 Urine Urobilinogen Negative Negative Urine Ketones Negative Negative Urine Protein Negative Negative Urine Leukocytes Negative Negative Urine Blood Negative Negative Urine Nitrite Negative Negative Urine Bilirubin Negative Negative Urine Glucose Negative Negative Type & Screen 02/17/2018 [facility] Patient Blood Type A Negative [facility] [place] [address] [phone] Antibody Screen NEGATIVE Urine Culture And 02/17/2018 [facility] Urine Culture SEE RESULT [address] [place] [address] [phone] 1 SEE RESULT BELOW Name: MASSIEL SIMS : [address]: Kristi White MD Acct: [id number] Unit: [id number] AGE: 52 Location: [facility] Re02/17/18 SEX: F Status: REG REF SPEC: [id number] EUGENIA: 02/17/18-[address]: Kristi White MD REQ: [id number] RECD: 02/17/18 STATUS: RES FRANCISCO DR: Juan C Kim INCINERATOR ATTENDANT _ SOURCE: URINE SPDESC: ORDERED: Urine Culture QUERIES: Urine Source: Clean Catch Procedure Result Reported Site Urine Culture Preliminary 02/18/18- 1105 ML Organism 1 ESCHERICHIA COLI [place] Count 50-75,000 (Many) CFU/ML * ML - Main Lab . END OF REPORT DEPARTMENT OF PATHOLOGY, [address] [place] [address] Jose Carlos Beck M.D. Director [facility] # [id number] Procedures Date Code Description Status 10/21/201797779 Inject/Drain Joint/Bursa Major W/O US Completed 10/14/201784012 Inject/Drain Joint/Bursa Major W/O US Completed 10/07/201750262 Inject/Drain Joint/Bursa Major W/O US Completed 08/26/201725801 Inject/Drain Joint/Bursa Major W/O US Completed 08/12/2017 26851 Colonoscopy Flexible Remove Tumor/Polyp/Lesion Snare Completed Technique 08/12/2017 13693 Endoscopy Upper GI Biopsy Completed 08/12/2017 86947715 Colonoscopy Completed 07/10/201751322 Inject/Drain Joint/Bursa Major W/O US Completed 07/03/2017 14856 Inject/Drain Joint/Bursa Major W/O US Completed Encounters Type Date Location Provider Dx Diagnosis Office Visit 01/27/2018 [facility] Kristi White, M25.562 Pain in left knee 8:00a [facility] MZak M25.561 Pain in right knee M25.462 Effusion, left knee M25.461 Effusion, right knee M17.0 Bilateral primary osteoarthritis of knee M16.11 Unilateral primary osteoarthritis, right hip M16.12 Unilateral primary osteoarthritis, left hip M25.552 Pain in left hip M25.551 Pain in right hip E66.01 Morbid (severe) obesity due to excess calories M17.11 Unilateral primary osteoarthritis, right knee Office Visit 11/16/2017 9:45a [facility] Kristi White, M25.551 Pain in right [facility] MZak hip M25.552 Pain in left hip M16.12 Unilateral primary osteoarthritis, left hip M16.11 Unilateral primary osteoarthritis, right hip E66.01 Morbid (severe) obesity due to excess calories Z68.41 Body mass index (BMI) 40.0-44.9, adult Office Visit 09/14/2017 8:15a [facility] Kristi White, M25.561 Pain in right [facility] M.D. knee M25.562 Pain in left knee M17.0 Bilateral primary osteoarthritis of knee M25.461 Effusion, right knee M25.462 Effusion, left knee Office Visit 08/26/2017 9:45a [facility] Kristi White, M25.561 Pain in right Of [facility] M.D. knee M25.562 Pain in left knee M17.0 Bilateral primary osteoarthritis of knee M25.461 Effusion, right knee M25.462 Effusion, left knee M17.12 Unilateral primary osteoarthritis, left knee Office Visit 07/10/2017 Orthopedic Kristi M17.11 Unilateral primary 11:45a [facility]iet osteoarthritis, right [facility] knee M25.561 Pain in right knee M25.461 Effusion, right knee Office Visit 07/03/2017 8:00a Orthopedic Kristi M16.0 Bilateral primary [facility] osteoarthritis of [facility] hip M70.62 Trochanteric bursitis, left hip M70.61 Trochanteric bursitis, right hip E66.01 Morbid (severe) obesity due to excess calories Z68.42 Body mass index (BMI) 45.0-49.9, adult Plan of Treatment Future Appointment(s):02/25/2018 12:30 pm - ADAIR Foote at [facility]02/25/2018 12:30 pm - Kristi White M.D. at [facility]02/17/2018 - Kristi White M.D.M25.561 Pain in right kneeFollow up:Follow up: 2 weeks after xdnwqfrY41.461 Effusion, right kneeM17.0 Bilateral primary osteoarthritis of knee
--- OUTSIDE RECORDS SUMMARY | 2018-02-25 10:13 | XMS REPORT | Continuity of Care Document ---
:1965 External Reference #:[id number] Author Name Glenys Lacy Care Team Providers Name Role Phone Juan C Kim NP Primary Care Physician Unavailable Payers Type Date Identification Numbers Payment Provider Subscriber Policy Number: [id number] [employer] Number: [id number] [address] [address] PayID: [id number] [place] [address] Advance Directives Description No Information Available Problems Date Description Provider Status Onset: 07/10/2017 Localized, primary osteoarthritis Kristi White M.D. Active Onset: 11/16/2017 Localized, primary osteoarthritis of the Kristi White M.D. 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 ETOH Use Denies alcohol use Tobacco Use Start: Unknown End: Patient is a former smoker Unknown Smoking Status Reviewed: 01/27/18 Patient is a former smoker Exercise Type/Frequency Exercises sporadically Allergies, Adverse Reactions, Alerts Description No Known Drug Allergies Medications Medication Date Status Form Strength Qnty SIG Indications Ordering Provider Diclofenac / Active Gel 1% apply 2 Unknown Sodium 0000 grams to affected area twice daily Sucralfate / Active Tablets 1gm Becka 0000 Halley Bah Tramadol HCL / Active Tablets 50mg 400 mg a Unknown 0000 day Tablets / Active Tablets 4mg 1 tab by Unknown 0000 Dispers mouth every 6 hours as needed nausea Pantoprazole / Active Solution 40mg 1 by mouth Unknown Sodium 0000 Rec every day Baclofen / Active Tablets 10mg Becka Halley Bah Valium / Active Tablets 10mg 1 tablet Unknown 0000 by mouth 30 minutes before mri Naproxen Sodium / Hx Tablets ER 500mg take one Unknown [...] 20mg Storm, 0000 - DR Irizarry, 2017 Xanax / Hx Tablets 1mg take [...] 1 MG Depomedrol Administered Injection Kristi 40MG Bruno White M.D. Depomedrol Administered Injection Kristi 40MG Bruno White M.D. Depomedrol Administered Injection Kristi 40MG Bruno White M.D. Depomedrol Administered Injection Kristi 40MG Bruno White M.D. Immunizations Description No Information Available Vital Signs Date Vital Result Comment 01/27/2018 7:59am Height 66.50 inches 5'6.50" Weight [...] BMI (Body Mass Index) 49.4 kg/m2 Results Description No Information Available Procedures Date Code Description Status 10/21/2017 Inject/Drain Joint/Bursa Major W/O US Completed 10/14/2017 Inject/Drain Joint/Bursa Major W/O US Completed 10/07/2017 Inject/Drain Joint/Bursa Major W/O US Completed 08/26/2017 Inject/Drain Joint/Bursa Major W/O US Completed 08/12/2017 16946 Colonoscopy Flexible Remove Tumor/Polyp/Lesion Snare Completed Technique 08/12/2017 95906 Endoscopy Upper GI Biopsy Completed 08/12/2017 84708120 Colonoscopy Completed 07/10/2017 Inject/Drain Joint/Bursa Major W/O US Completed 07/03/2017 Inject/Drain Joint/Bursa Major W/O US Completed Encounters Type Date Location Provider Dx Diagnosis Office Visit 11/16/2017 [facility] Kristi White, M25.551 Pain in right hip 9:45a [facility] M.DAbiola M25.552 Pain in left hip M16.12 Unilateral [...] Office Visit 08/26/2017 9:45a [facility] Kristi White M25.561 Pain in right Of [facility] M.D. knee M25.562 Pain in left knee M17.0 Bilateral primary osteoarthritis of knee M25.461 Effusion, right knee M25.462 Effusion, left knee M17.12 Unilateral primary osteoarthritis, left knee Office Visit 07/10/2017 Orthopedic Kristi M17.11 Unilateral primary 11:45a Services Corazon White M.D. osteoarthritis, right [facility] knee M25.561 Pain in right knee M25.461 Effusion, right knee Office Visit 07/03/2017 8:00a [facility] Kristi M16.0 Bilateral primary [facility] osteoarthritis of [facility] hip M70.62 Trochanteric bursitis, left hip M70.61 Trochanteric bursitis, right hip E66.01 Morbid (severe) obesity due to excess calories Z68.42 Body mass index (BMI) 45.0-49.9, adult Plan of Treatment Future Appointment(s):02/17/2018 10:00 am - Kristi White M.D. at [facility]01/27/2018 - Kristi White M.D.M25.562 Pain in left kneeM25.561 Pain in right kneeFollow up:Follow up: 7-10 days before wmgljtiU60.462 Effusion, left kneeM25.461 Effusion, right kneeM17.0 Bilateral primary osteoarthritis of kneeM16.11 Unilateral primary osteoarthritis, right hipM16.12 Unilateral primary osteoarthritis, left hipM25.552 Pain in left hipNew Xrays:Hips-Bilateral 5+ VWS, Ordered: 01/27/18M25.551 Pain in right hipNew Xrays:Hips-Bilateral 5+ VWS, Ordered: 01/27/18E66.01 Morbid (severe) obesity due to excess calories
[2018-02-25] MEDS ORDERED: Bupivacaine 0.5%* 50 ML VIAL ONE (10:57)
[2018-02-25] MEDS ORDERED: ceFAZolin 2 GM PREMIX in ORs 2 GM/50 ML BAG IVPB ONE (11:07)
[2018-02-25] MEDS ORDERED: fentaNYL* 50 MCG/ML 2 ML VIAL (100 MCG VIAL) ONE ×6 (11:12→14:35)
[2018-02-25] MEDS ORDERED: Midazolam* 1 MG/ML 2 ML VIAL (2 MG) ONE ×2 (11:12→15:16)
[2018-02-25] MEDS ORDERED: ROPIVACAINE 5 MG/ML 30 ML BTL (0.5%) ONE (11:13)
[2018-02-25] MEDS ORDERED: Propofol* 10 MG/ML 20 ML BTL ONE (11:13)
[2018-02-25] MEDS ORDERED: Rocuronium* 10 MG/ML VIAL ONE (11:13)
[2018-02-25] MEDS ORDERED: Tranexamic Acid 1,000 MG in NS 0.9% 50 ML IV ONE (11:30)
[2018-02-25] MEDS ORDERED: Naloxone* 0.4 MG/ML 1 ML VIAL IV PRN (13:16)
[2018-02-25] MEDS ORDERED: DiMENhydriNATE IV* 50 MG/ML VIAL IV PUSH PRN (13:16)
[2018-02-25] MEDS ORDERED: Ondansetron INJ* 2 MG/ML VIAL ONE (13:17)
[2018-02-25] MEDS ORDERED: Glycopyrrolate IV* 0.2 MG/ML 1 ML VIAL ONE (13:36)
[2018-02-25] MEDS ORDERED: Neostigmine Methylsulfate* 1 MG/ML 10 ML VIAL (1 mg/ml) ONE (13:36)
[2018-02-25] MEDS ORDERED: Ondansetron TAB* 4 MG PO PRN (14:18)
[2018-02-25] MEDS ORDERED: diPHENhydraMINE IV* 50 MG/ML 1 ml VIAL (BENADRYL) IV PRN (14:18)
[2018-02-25] MEDS ORDERED: Cyclobenzaprine TAB* 10 MG PO PRN (14:18)
[2018-02-25] MEDS ORDERED: Polyethylene Glycol 3350* 17 GM PACKET PO PRN (14:18)
[2018-02-25] MEDS ORDERED: Bisacodyl SUPP* 10 MG SUPP PR PRN (14:18)
[2018-02-25] MEDS ORDERED: traMADol TAB* 50 MG PO PRN (14:18)
[2018-02-25] MEDS ORDERED: Magnesium Hydroxide LIQ* 30 ML UDC PO PRN (14:18)
[2018-02-25] MEDS: fentaNYL* 50 MCG/ML 2 ML VIAL (100 MCG VIAL) IV PRN ×6 (14:20→14:44)
[2018-02-25] MEDS ORDERED: oxyCODONE TAB* 5 MG TAB PO PRN (14:21)
[2018-02-25] MEDS ORDERED: oxyCODONE TAB* 5 MG TAB ONE (14:29)
[2018-02-25] MEDS: oxyCODONE TAB* 5 MG TAB PO PRN (14:34)
[2018-02-25] MEDS ORDERED: HYDROmorphone INJ1* 1 MG/ML SYRINGE ONE ×2 (15:06→16:18)
[2018-02-25] MEDS ORDERED: Naloxone* 0.4 MG/ML 1 ML VIAL IV PUSH PRN (16:34)
[2018-02-25] MEDS ORDERED: Diazepam INJ (NF) 5 MG/ML 10 ML VIAL (50 MG TOTAL) IV PRN (16:39)
[2018-02-25] MEDS ORDERED: HYDROmorphone PCA* 20 MG/20 ML PCA.SYRING PCA SCH (17:00)
--- NOTE | 2018-02-25 18:11 | PN ---
Progress Note - Progress Note Date of Service: 02/25/18 Note: 52 y/o female had right total knee arhtroplasty earlier today and admitted to ICU for pain control. Patient has Hx PTSD, borderline personality disorder, and Lima's esophagus, and has been on long-term management with benzos (valium) and PPIs (pantoprazole). On arrival to ICU, patient appeared comfortable, and was oxygenating adequately on nasal O2. Pain management consists of IV hydrocodone delivered by PHILOSOPHY FACULTY MEMBER, along with valium (10 mg BID) for agitation. Full consult to follow.
[2018-02-25] MEDS: Lactated Ringers 1000 ML Bag* 1,000 ML IV SCH (20:00)
[2018-02-25] MEDS ORDERED: Diazepam TAB(*) 5 MG PO SCH (21:00)
[2018-02-25] MEDS: Diazepam TAB(*) 5 MG PO SCH (21:03)
[2018-02-25] MEDS: Docusate CAP* 100 MG PO SCH (21:03)
[2018-02-25] MEDS: Gabapentin CAP(*) 300 MG PO SCH (21:03)
[2018-02-25] MEDS: ceFAZolin 1 GM ADVAN(*) 1 GM in NS 0.9% 50 ML* 50 ML IVPB SCH (21:03)
[2018-02-25] MEDS: CMCS:Pantoprazole TAB (NF) 40 MG TAB PO SCH (21:04)
[2018-02-25] MEDS: Magnesium Hydroxide LIQ* 30 ML UDC PO SCH (21:08)
[2018-02-25] MEDS ORDERED: Sucralfate TAB* 1 GM ONE (21:43)
[2018-02-25] MEDS ORDERED: Sucralfate TAB* 1 GM PO PRN (21:58)
[2018-02-26] MEDS ORDERED: Tranexamic Acid 1,000 MG in NS 0.9% 50 ML* (outpatient use) IV SCH ×2
[2018-02-26] MEDS: Morphine VIAL* 4 MG/ML VIAL (1 ml vial) IV PRN ×2 (01:06→04:05)
[2018-02-26] MEDS: oxyCODONE TAB* 5 MG TAB PO PRN ×3 (03:17→15:53)
[2018-02-26] MEDS: ceFAZolin 1 GM ADVAN(*) 1 GM in NS 0.9% 50 ML* 50 ML IVPB SCH ×2 (04:09→11:55)
[2018-02-26 06:28] LABS: Hematocrit 39 % (35-47); Hemoglobin 12.8 g/dl (12.0-16.0); Mean Platelet Volume 9.2 fL (7.4-10.4); Platelet Count 228 10^3/ul (150-450)
[2018-02-26 06:43] LABS: INR 0.99 (0.77-1.02)
[2018-02-26 06:49] LABS: BUN/Creatinine Ratio 11.7 (8-20); Calcium 8.8 mg/dL (8.6-10.3); EGFR Non-African American 78.7 (>60); Potassium 3.7 mmol/L (3.5-5.0)
--- NOTE | 2018-02-26 06:55 | OP ---
DATE OF OPERATION: 02/25/18 - ROOM #ICU-03 DATE OF : [birth year] SURGEON: Kristi White MD FINANCIAL AGENT: ADAIR Rizzo. Ms. Lucas did help throughout the procedure with preparation of the leg, wound retraction, manipulation of the knee, and wound closure. ANESTHESIOLOGIST: Dr. Segundo. ANESTHESIA: General. PRE-OP DIAGNOSIS: Severe end-stage degenerative osteoarthritis of the right knee joint. POST-OP DIAGNOSIS: Severe end-stage degenerative osteoarthritis of the right knee joint. OPERATIVE PROCEDURE: Right total knee arthroplasty. TOURNIQUET TIME: 48 minutes. COMPLICATIONS: None. ESTIMATED BLOOD LOSS: 400 cc. SPECIMENS: Bone and cartilage from the right knee joint sent to Pathology. HARDWARE: This is cemented Deutsch [employer] Nephew total knee arthroplasty hardware. Two packages of Simplex bone cement. For the femur, a size 6 right narrow posterior stabilized Legion Oxinium femoral component. For the tibia, a size 5 right Fátima II tibial baseplate. For the insert, a 9 mm posterior stabilized articular insert size 5/6. For the patella, a 29 mm 3-peg all poly patella. BRIEF HISTORY/INDICATIONS: Ms. Murphy is a 52-year-old female with years of increasingly severe right knee pain. Radiographs showed severe end-stage arthritis with peny-fm-adlh contact. She failed conservative treatment with antiinflammatories, pain medication, intraarticular injections, and physical therapy. Due to continued pain and decreased quality of life, she elected to undergo right total knee arthroplasty. Informed consent was obtained from the patient. She understood the risks of surgery included, but were not limited to , bleeding, infection, damage to nearby structures, continued pain, need for further surgery, intraoperative fracture, nerve palsy, hardware failure or loosening, knee stiffness, loss of motion, stroke, heart attack, blood clot, and . She wished to proceed. INTRAOPERATIVE FINDINGS: Intraoperatively, the patient was noted to have severe deformity of the patella because of cartilage loss and wear. She had valgus deformity of 12 degrees. 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 Full-thickness cartilage loss in both the medial and patellofemoral compartment. DESCRIPTION OF PROCEDURE: Ms. Murphy was identified in the preanesthesia unit. Her right lower extremity was marked as the correct operative side. Informed consent was signed and placed in the chart. The patient was taken to the operating room and placed under general anesthesia. Tourniquet was placed on the right thigh. Right lower extremity was prepped and draped in the usual sterile fashion. Preop time-out was made to once again correctly identify the patient, side, and site. Appropriate perioperative antibiotics were given within 1 hour of incision. Tourniquet was inflated and total tourniquet time for this procedure was 48 minutes. A midline incision was made with a 10 blade and carried down to the extensor mechanism. A new 10 blade was used to make a standard medial parapatellar arthrotomy. The patella was subluxed laterally. Electrocautery was used to subperiosteally elevate the soft tissue off the superomedial tibia to the mid sagittal plane. The knee was flexed up. The anterior horn of the lateral meniscus and ACL were sharply released. A drill was used to enter the distal femur. Intramedullary distal femoral cutting guide was pinned on the distal femur. Oscillating saw was used to make the distal femoral cut. Next, the external rotation guide was pinned on the distal femur. The distal femur was sized to a size 6. Size 6 multi-cutting jig was pinned on the distal femur. Oscillating saw was used to make the appropriate 4 chamfer cuts. The PCL was completely released. Tibia was subluxed anteriorly. Extramedullary tibial cutting guide was pinned on the proximal tibia. Oscillating saw was used to make the proximal tibial cut perpendicular to the mechanical axis of the tibia. The bone was carefully removed. The knee was brought out into full extension. Spacer block had good fit with the knee in full extension. There was good medial and lateral ligamentous balancing. Flexion and extension gaps were well balanced. The knee was flexed up. Lamina furniture fabricator was placed both medially and laterally. Any remaining meniscus was removed using electrocautery. Curved osteotome was used to remove any posterior osteophytes. Tibial tray and drop noel were placed and once again confirmed a satisfactory tibial cut. A size 6 right narrow femoral trial was impacted onto the distal femur and had excellent fit and stability. The box for the posterior stabilized implant was prepared using a reamer and box-cut osteotome. Size 5 tibial tray trial with a 9 mm insert trial was placed and the knee was taken through range of motion. The knee had full extension to 125 degrees of flexion. There was satisfactory patellofemoral tracking. The patella was everted. A 9 mm of patellar bone and cartilage was carefully removed. Patella was sized to a size 29. Three peg holes were drilled through the size 29 guide. A 29 trial patella was placed and the knee was taken through range of motion. There was satisfactory patellofemoral tracking. All trials were carefully removed. The tibia was subluxed anteriorly and sized to a size 5. Proximal tibia was prepared using a size 5 keel punch. All bony cut surfaces were copiously irrigated with sterile saline and dried. Final implants were cemented into place starting with the tibia followed by the femur and last the patella. A 9 mm insert trial was placed while the knee was brought out into full extension. Tourniquet was turned down at 48 minutes. The knee was copiously irrigated with sterile saline. Once the cement had fully cured, the insert trial was removed. Any excess cement was removed from around the capsule and hardware. Final implant chosen was a 9 mm posterior stabilized articular insert size 5/6. This was locked into position on the tibial tray. Stability of the insert was checked and rechecked and noted to be stable. The extensor mechanism was closed using interrupted #1 Vicryl. The rest of the incision was closed in a layered fashion using 0 and 2-0 Vicryl. Skin was closed using running 3-0 nylon suture. Sterile Xeroform, 4x4's, and Webril were used to cover the incision. Obie wrap and cold pack were placed over this. The patient's anesthesia was reversed without difficulty. She was taken to the PACU in stable condition. Intended weightbearing will be weightbearing as tolerated. Intended DVT prophylaxis will be Eliquis. [id number]/[facility] #: [id number] [facility]
[2018-02-26] MEDS: Ondansetron INJ* 2 MG/ML VIAL IV PRN (07:44)
[2018-02-26] MEDS: Gabapentin CAP(*) 300 MG PO SCH ×3 (08:44→22:13)
[2018-02-26] MEDS: Apixaban* 2.5 MG TAB PO SCH ×3 (08:44→22:14)
[2018-02-26] MEDS: Docusate CAP* 100 MG PO SCH ×2 (08:44→19:59)
[2018-02-26] MEDS: CMCS:Pantoprazole TAB (NF) 40 MG TAB PO SCH ×2 (08:44→22:13)
[2018-02-26] MEDS: Magnesium Hydroxide LIQ* 30 ML UDC PO SCH ×2 (08:45→19:59)
[2018-02-26] MEDS ORDERED: Diazepam TAB(*) 5 MG PO SCH (09:00)
[2018-02-26] MEDS ORDERED: Sucralfate TAB* 1 GM PO SCH (09:00)
[2018-02-26] MEDS: Baclofen TAB* 10 MG PO SCH ×2 (09:14→22:14)
[2018-02-26] MEDS: Diazepam TAB(*) 5 MG PO SCH ×2 (11:01→19:59)
--- NOTE | 2018-02-26 11:25 | PN ---
Progress Note - Progress Note Date of Service: 02/26/18 SOAP: Subjective: []Patient seen OOB in chair in ICU with Ketan Frank, Orthopedic nurse navigator. Family members present. She had difficulty last evening with pain management and feels that the nerve block did not work at all. She has been on a Dilaudid MUSEUM DIRECTOR and Valium which are now working to control her pain. She also voices needing her Carafate dose first thing at 0500 before other meds to avoid irritating Lima's esophagitis. Objective: [] Vital Signs Temp 97.6 F 02/26/18 07:32 Pulse 69 02/26/18 11:01 Resp 20 02/26/18 11:01 BP 145/98 02/26/18 11:01 Pulse Ox 96 02/26/18 11:01 Intake & Output 02/25/18 02/26/18 02/26/18 18:59 06:59 18:59 Intake Total 1000 4635 Output Total 1865 575 Balance 1000 2770 -575 Weight 258 lb Intake: IV Fluids 1000 3495 LR 1000 3495 IVPB 180 ABX - CEFAZOLIN 180 Oral 960 Output: Yusuf 1365 575 Emesis 500 Laboratory Results - last 24 hr 02/26/18 02/26/18 02/26/18 06:16 06:16 06:16 Hgb 12.8 Hct 39 Plt Count 228 MPV 9.2 INR (Anticoag Therapy) 0.99 Sodium 136 Potassium 3.7 Chloride 103 Carbon Dioxide 27 Anion Gap 6 BUN 9 Creatinine 0.77 Est GFR ( Amer) 95.3 Est GFR (Non-Af Amer) 78.7 BUN/Creatinine Ratio 11.7 Glucose 127 H Calcium 8.8 Right knee MARCIAL dry and intact, Cryo unit on and working calf is non tender and soft +DF/PF right ankle sensation is intact distally Assessment: []s/p right total knee arthroplasty POD #1 Plan: []Transfer out of ICU to [facility] Resume PT/OT WBAT RLE Continue Dilaudid MUSEUM DIRECTOR and appropriate monitoring Eliquis 2.5 mg BID for DVT prophylaxis
[2018-02-26] MEDS: Lactated Ringers 1000 ML Bag* 1,000 ML IV SCH (12:03)
[2018-02-26] MEDS ORDERED: HYDROmorphone PCA* 20 MG/20 ML PCA.SYRING PCA SCH (14:23)
[2018-02-26] MEDS: Diazepam TAB(*) 5 MG PO PRN (14:47)
--- NOTE | 2018-02-26 16:32 | CONSULT ---
Identification - Patient Identification Reason for Psychiatric Consultation: Patient Distress -: Patient is a 52 year old, F admitted on 02/25/18. - MHU Identification Hx Psychiatric Hospitalization: Yes History - Objective HPI: Psychiatry is asked to see this 52 y.o. , white female with a history of PTSD, borderline personality disorder and anxiety, per her request, for anxiety. I spoke with orthopedist, Dr. White, who indicated that the patient was hysterical when coming out of anesthesia in the PACU, following her right total knee replacement surgery one day ago. Prior to seeing the patient I conferred with the ICU staff that had taken care of her prior to her transfer to the [facility]. They indicate that she is needy but not a behavioral or management issue here in the hospital. I then met with the patient in room 346, where she is accompanied by her , Humberto. She denies any mental health complaints at this time and feels the diazepam is helping manage her anxiety. "I just had a difficult time coming out of the surgery. The anesthesiologist missed the nerve on the nerve block and I think it was mostly pain I was dealing with." She sees psychologist Josh Sinclair, who happens to be the [facility] unit psychologist on , in his private practice in [place], [place], and last saw him February 19. Her medications, including diazepam, are prescribed by SHARIF Kim in [place], [place]. The patient has no mental health needs at this time and denies being suicidal or homicidal. She's hoping to be discharged home either tomorrow or the following day. She is pleasant and cooperative throughout the interview. Exam Appearance: Obese Hygiene: Normal Grooming: Well Kept Psychomotor Activities: Normal Exhibits Abnormal Movement: No Attitude and Relatedness: Cooperative Eye Contact: Good - Speech Quality: Unpressured Latencies: Normal Quantity: Appropriate Patient's Decription of Mood: "Good" Observed Affect: Good Affect Consistent with: Euthymia Patient's Thought Process: Coherent Thought Content: No Passive Wish, No Suicidal Planning, No Homicidal Ideation, No Paranoid Ideation Experiencing Hallucinations: No, Sensorium is Clear Type of Hallucinations: Visual: No, Auditory: No, Command: No Level of Consciousness: Alert Orientation: Yes Intact, Yes Orientated to Time, Yes Orientated to Place, Yes Orientated to Person Impulse Control: Intact Insight and Judgement: Good Impression - Impression Clinical Impression: 52 y.o. , white female with a history of PTSD, borderline personality disorder and anxiety seen, per her request, for anxiety. Inpatient DSM-V Dx: F41.9 Merits Inpatient Hospitalization: No MHU: Problem List - Patient Problems (1) Anxiety Current Visit: Yes Status: Acute Priority: Low Code(s): F41.9 - ANXIETY DISORDER, UNSPECIFIED SNOMED Code(s): 43364200 Plan - Treatment Plan Treatment Plan: The patient is happy with her treatment for anxiety thus far. She is someone who has been on chronic benzodiazepine administration for well over 3 decades. It would not make much sense to take her off these in the acute post-surgical hospital setting. She will follow up with psychologist Josh Sinclair and family MUSEUM LIBRARIAN Clementine Kim as an outpatient. Thank you for the consult. Psychiatry is signing off. Continued Medication Management: Continue Outpt Medication Medications: Current Medications Apixaban (Eliquis*) 2.5 mg PO BID [facility] Last Admin: 02/26/18 11:01 Dose: 2.5 mg Baclofen (Lioresal Tab*) 5 mg PO BID [facility] Last Admin: 02/26/18 09:14 Dose: 5 mg Bisacodyl (Dulcolax Supp*) 10 mg SC DAILY PRN PRN Reason: constipation Diazepam (Valium Tab(*)) 10 mg PO BEDTIME [facility] Last Admin: 02/25/18 21:03 Dose: 10 mg Diazepam (Valium Tab(*)) 5 mg PO Q4H PRN PRN Reason: AGITATION Last Admin: 02/26/18 14:47 Dose: 5 mg Diazepam (Valium Tab(*)) 5 mg PO 0800,1200 [facility] Last Admin: 02/26/18 11:01 Dose: 5 mg Docusate Sodium (Colace Cap*) 100 mg PO BID [facility] Last Admin: 02/26/18 08:44 Dose: 100 mg Gabapentin (Neurontin Cap(*)) 300 mg PO TID [facility] Last Admin: 02/26/18 14:47 Dose: 300 mg Lactated Ringer's (Lactated Ringers 1000 Ml Bag*) 1,000 mls @ 100 mls/hr IV PER RATE [facility] Last Admin: 02/26/18 12:03 Dose: 100 mls/hr Hydromorphone HCl (Dilaudid Neonatal Pediatric Nurse*) 20 mg in 20 mls @ 0 mls/hr [employer] 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 .change Q24H ALIREZA; Protocol Lactulose (Lactulose*) 30 ml PO Q6H PRN PRN Reason: constipation Magnesium Hydroxide (Milk Of Magnesia Liq*) 30 ml PO BID ALIREZA Last Admin: 02/26/18 08:45 Dose: Not Given Magnesium Hydroxide (Milk Of Magnesia Liq*) 30 ml PO Q6H PRN PRN Reason: constipation Naloxone HCl (Narcan*) 0.08 mg IV PUSH .Q2MIN PRN PRN Reason: OVERSEDATION Ondansetron HCl (Zofran Inj*) 4 mg IV Q6H PRN PRN Reason: nausea Last Admin: 02/26/18 07:44 Dose: 4 mg Ondansetron HCl (Zofran Tab*) 4 mg PO Q6H PRN PRN Reason: NAUSEA Last Admin: 02/26/18 11:54 Dose: 4 mg Oxycodone HCl (Roxycodone Tab*) 5 mg PO Q4H PRN PRN Reason: PAIN Oxycodone HCl (Roxycodone Tab*) 10 mg PO Q4H PRN PRN Reason: SEVERE PAIN Last Admin: 02/26/18 15:53 Dose: 10 mg Pantoprazole Sodium (Protonix Tab (Nf)) 40 mg PO BID ALIREZA Last Admin: 02/26/18 08:44 Dose: 40 mg Polyethylene Glycol/Electrolytes (Miralax*) 17 gm PO DAILY PRN PRN Reason: Constipation Sucralfate (Carafate*) 1 gm PO QAM@0500 ALIREZA Tramadol HCl (Ultram*) 50 mg PO Q6H PRN PRN Reason: PAIN - Discharge Plan Discharge Plan: Outpatient Follow Up Outpatient Program: Private Clinician(s)
[2018-02-27] MEDS: oxyCODONE TAB* 5 MG TAB PO PRN ×5 (00:21→17:10)
[2018-02-27] MEDS: Ondansetron INJ* 2 MG/ML VIAL IV PRN (04:27)
[2018-02-27] MEDS: Sucralfate TAB* 1 GM PO SCH (04:41)
[2018-02-27 05:50] LABS: Hematocrit 37 % (35-47); Hemoglobin 12.3 g/dl (12.0-16.0); Mean Platelet Volume 8.8 fL (7.4-10.4); Platelet Count 241 10^3/ul (150-450)
[2018-02-27 05:51] LABS: INR 1.17 (0.77-1.02)
[2018-02-27] MEDS: Diazepam TAB(*) 5 MG PO PRN ×3 (05:53→18:23)
[2018-02-27] MEDS: Diazepam TAB(*) 5 MG PO SCH ×3 (07:14→21:22)
[2018-02-27] MEDS: Magnesium Hydroxide LIQ* 30 ML UDC PO SCH ×2 (07:49→21:18)
[2018-02-27] MEDS: Docusate CAP* 100 MG PO SCH ×2 (07:49→21:18)
[2018-02-27] MEDS: Gabapentin CAP(*) 300 MG PO SCH ×3 (07:50→21:18)
[2018-02-27] MEDS: Apixaban* 2.5 MG TAB PO SCH ×2 (07:50→21:17)
[2018-02-27] MEDS: CMCS:Pantoprazole TAB (NF) 40 MG TAB PO SCH ×2 (07:50→21:18)
[2018-02-27] MEDS: Baclofen TAB* 10 MG PO SCH ×2 (07:51→21:17)
--- NOTE | 2018-02-27 09:56 | PN ---
Progress Note - Progress Note Date of Service: 02/27/18 SOAP: Subjective: []Patient is seen at bedside with Dr. White. She is doing better in terms of pain management and also mentally. She denies SOB, CP, dizziness nausea or vomiting. 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 Objective: [] Vital Signs Temp 99.1 F 02/27/18 07:18 Pulse 95 02/27/18 07:18 Resp 20 02/27/18 08:49 BP 132/83 02/27/18 07:18 Pulse Ox 96 02/27/18 08:00 Intake & Output 02/26/18 02/27/18 02/27/18 18:59 06:59 18:59 Intake Total 440 1300 240 Output Total 1125 1600 1600 Balance -685 -300 -1360 Intake: Oral 440 1300 240 Output: Urine 1600 1600 Yusuf 1125 Other: Estimated Void Large # Bowel Movements 0 Laboratory Results - last 24 hr 02/27/18 02/27/18 05:37 05:37 Hgb 12.3 Hct 37 Plt Count 241 MPV 8.8 INR (Anticoag Therapy) 1.17 H Right knee dressings were changed, minimal drainage on dressings, wound benign calf NT and soft +DF/PF right ankle sensation intact distally Assessment: []s/p RTK arthroplasty POD #2 Plan: []PT/OT WBAT RLE Eliquis 2.5 mg BID for DVT prophylaxis Discontinue dilaudid VEIN ACCESS TECHNICIAN and add long acting morphine PO medication Possible discharge home 02/28 with VNS
[2018-02-27] MEDS: Morphine TAB Extended Release (*) 30 MG TAB.ER PO SCH ×2 (10:15→22:13)
[2018-02-28] MEDS: oxyCODONE TAB* 5 MG TAB PO PRN ×4 (01:27→13:52)
[2018-02-28 05:11] LABS: Hematocrit 32 % (35-47); Hemoglobin 10.7 g/dl (12.0-16.0); Mean Platelet Volume 9.2 fL (7.4-10.4); Platelet Count 249 10^3/ul (150-450)
[2018-02-28 05:16] LABS: INR 1.11 (0.77-1.02)
[2018-02-28] MEDS: Sucralfate TAB* 1 GM PO SCH (05:36)
[2018-02-28] MEDS: Diazepam TAB(*) 5 MG PO SCH ×2 (07:50→12:34)
--- NOTE | 2018-02-28 07:53 | PN ---
Progress Note - Progress Note Date of Service: 02/28/18 SOAP: Subjective: []Patient seen at bedside this am. Getting ready to work with PT. IF she masters stairs she feels ready to go home this afternoon. Pain well managed. Objective: [] Vital Signs Temp 99.1 F 02/28/18 03:36 Pulse 107 02/28/18 03:36 Resp 18 02/28/18 07:42 BP 115/52 02/28/18 03:36 Pulse Ox 88 02/28/18 03:36 Intake & Output 02/27/18 02/28/18 02/28/18 18:59 06:59 18:59 Intake Total 2767 500 Output Total 1600 1300 Balance 1167 -800 Intake: IV Fluids 854 LR 854 IVPB 53 ABX - CEFAZOLIN 53 Oral 1860 500 Output: Urine 1600 1300 Other: Estimated Void Large Laboratory Results - last 24 hr 02/28/18 02/28/18 04:57 04:57 Hgb 10.7 L Hct 32 L Plt Count 249 MPV 9.2 INR (Anticoag Therapy) 1.11 H right knee incision remains benign +DF right ankle calf NT and soft 2+ pedal pulse sensation intact RLE Assessment: []s/p Right total knee arthroplasty POD #3 Plan: []PT/OT Eliquis BID for DVT prophylaxis Probable discharge home this afternoon if PT goals met
[2018-02-28] MEDS: Gabapentin CAP(*) 300 MG PO SCH ×2 (08:34→13:52)
[2018-02-28] MEDS: Apixaban* 2.5 MG TAB PO SCH (08:34)
[2018-02-28] MEDS: Docusate CAP* 100 MG PO SCH (08:34)
[2018-02-28] MEDS: Baclofen TAB* 10 MG PO SCH (08:34)
[2018-02-28] MEDS: CMCS:Pantoprazole TAB (NF) 40 MG TAB PO SCH (08:35)
[2018-02-28] MEDS: Magnesium Hydroxide LIQ* 30 ML UDC PO SCH (08:36)
[2018-02-28] MEDS: Morphine TAB Extended Release (*) 30 MG TAB.ER PO SCH (09:44)
[2018-02-28 15:52] VITALS: BP 122/74
--- NOTE | 2018-02-28 20:44 | DS ---
AMENDED REPORT NOW INCLUDES DESIGNATED COSIGNER DISCHARGE SUMMARY: DATE OF ADMISSION: 02/25/18 DATE OF DISCHARGE: 02/28/18 ATTENDING PHYSICIAN: Dr. Kristi White.* (DICTATED BY ADAIR COLLADO) ADMISSION DIAGNOSIS: Severe end-stage degenerative osteoarthritis of the right knee. DISCHARGE DIAGNOSIS: Severe end-stage degenerative osteoarthritis of the right knee. SURGERY PERFORMED: Right total knee arthroplasty. HOSPITAL COURSE: The patient is a 52-year-old female with years of increasingly severe right knee pain. Her plain x-rays revealed end-stage osteoarthritis with [id number] contact. She failed conservative management with anti-inflammatories, pain medication, intraarticular cortisone injections, and physical therapy. Due to increased pain and decreased quality of life, she elected to proceed with surgical intervention. She was taken to the operating room under the care of Dr. White on 02/25/18. Postoperatively, she had difficulty with pain management, her nerve block to her recollection did not work. 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 We were able to get her off the PAC using OxyContin long-acting 30 mg p.o. b.i.d. with Roxicodone in between. She also used her baclofen and Valium, all which has worked well to manage her pain adequately. She progressed satisfactorily with her physical therapy and occupational therapy goals. She was able to ambulate on stairs today without significant difficulty. It was felt that she was now medically and orthopedically stable for discharge to home with visiting nursing services in place this afternoon. CONDITION ON DISCHARGE: Temperature 98.6, pulse 92, respiratory rate 16, O2 sat 97% on room air, blood pressure 118/67. Her right knee incision is healing without evidence of infection. Her calf is nontender and soft. Her sensation is intact distally. She has a 2+ pedal pulse. She has active dorsiflexion and plantar flexion of the right ankle. PLAN: Discharge to home with visiting nursing services. She will be taking Eliquis 2.5 mg p.o. b.i.d. for DVT prophylaxis for the next 30 days. She was given small prescription, 3 days of the MS Contin 30 mg p.o. b.i.d. 6 tablets. She states that she has Roxicodone and Valium at home, which she will use after the MS Contin medication has been completed. She will follow up in the office as scheduled with Dr. White. All questions were answered. ADAIR COLLADO [id number]/[facility] #: [id number] ROYAL
== END 2018-02-28 15:45 | disposition home health service (06) | DRG 302 ==
LOC: AA 10:09 → ICU 17:22 → SSU 02-26 13:00
PROVIDERS: ADMIT Orthopaedic Surgery Adult Reconstructive Orthopaedic Surgery; ATTEND Orthopaedic Surgery Adult Reconstructive Orthopaedic Surgery
PROC: 0SRC069 Replacement of Right Knee Joint with Oxidized Zirconium on Polyethylene Synthetic Substitute, Cemented, Open Approach (ICD-10-PCS; principal; 2018-02-25 12:00)
DX: M17.11 Unilateral primary osteoarthritis, right knee (principal); Z68.41 Body mass index [BMI] 40.0-44.9, adult; F41.9 Anxiety disorder, unspecified; F43.10 Post-traumatic stress disorder, unspecified; E78.00 Pure hypercholesterolemia, unspecified; K22.70 Barrett's esophagus without dysplasia; K21.9 Gastro-esophageal reflux disease without esophagitis; M25.461 Effusion, right knee; I10 Essential (primary) hypertension; M25.761 Osteophyte, right knee; F60.3 Borderline personality disorder; E66.9 Obesity, unspecified; Q74.2 Other congenital malformations of lower limb(s), including pelvic girdle; Z90.49 Acquired absence of other specified parts of digestive tract; Z83.3 Family history of diabetes mellitus; Z87.891 Personal history of nicotine dependence; Z56.0 Unemployment, unspecified; Z82.3 Family history of stroke
CPT/HCPCS: 36415; 80048; 85014; 85018; 85049; 85610; 87641; 88305; 88311; 94660; A9270-GY; J0690; J1170; J2250; J2270; J2405; J2704; J2710; J2795; J3010

== ENCOUNTER 2018-11-16 08:11 | Inpatient (IN) | payer BC, OTHER ==
--- NOTE | 2018-11-10 17:34 | HP ---
Amended report to enter cosigning physician. PREOPERATIVE HISTORY AND PHYSICAL: DATE OF ADMISSION/SURGERY: 11/16/18 SURGEON: Dr. Kristi White* (dictated by ADAIR Solis). PROCEDURE: Left total knee arthroplasty. CHIEF COMPLAINT: Left knee pain. HISTORY OF PRESENT ILLNESS: Ms. Murphy is a 53-year-old female with left knee pain that has become increasingly unmanageable. She can have 8/10 pain along the joint line and is unable to walk more than a block without severe pain. She has tried anti-inflammatories, cane, rolling walker, physical therapy, and steroid injections without relief and is seeking surgical intervention at this time. PAST MEDICAL HISTORY: Morbid obesity, anxiety, GERD, hypertension, hypercholesterolemia, PTSD, and panic attacks. No history of DVT or PE. PAST SURGICAL HISTORY: x5, cholecystotomy, right total knee arthroplasty. She denies anesthetic complication with these procedures and has discussed undergoing epidural with Anesthesiology according to the patient. CURRENT MEDICATIONS: 1. Oxycodone 10 mg 6 times daily for pain. 2. Valium 10 mg 2 times daily. 3. Pantoprazole 40 mg 2 times daily. 4. Baclofen 0.5 mg 2 times daily. ALLERGIES: No known drug allergies. FAMILY HISTORY: Significant for paternal stroke but no cancer, diabetes, or heart disease. SOCIAL HISTORY: The patient lives with her partner, who will be caring for her postoperatively. She does not work. She denies tobacco, alcohol, or recreational drug use. She is not active, but is an independent ambulator. REVIEW OF SYSTEMS: Fourteen systems were reviewed with the patient today and are positive for left knee pain, chronic back pain, fatigue, PTSD, anxiety, and weight gain. Otherwise, the patient reports a negative review of systems. PHYSICAL EXAMINATION GENERAL: She is a well-developed, heavyset female, seated on exam table, in no acute distress, with appropriate affect. VITAL SIGNS: Height 66 inches, weight 247 pounds, pulse 70, blood pressure 138/ 82, respirations 16. HEENT: Normocephalic, atraumatic. Hearing and vision are grossly intact. Extraocular movements intact. NECK: The trachea is midline and symmetrical. CHEST: Lungs are clear to auscultation. No wheezes, rales, or rhonchi noted. CARDIO: Regular rate and rhythm. Normal S1, S2. No murmurs, rubs, or gallops noted. ABDOMEN: Body habitus is limiting, nondistended, nontender. Bowel sounds are present. GENITOURINARY: Deferred. MUSCULOSKELETAL: The left lower extremity: Skin is pink, dry, and intact without abrasions or open wounds. There is a moderate effusion at the knee. She extends the knee to 10 degrees and flexes 120 with pain and patellofemoral crepitus. No varus or valgus instability. She is tender to palpation along the medial joint line. Sensation is intact with 2+ dorsalis pedals pulse. IMAGING: Multiple views of the left knee show end-stage osteoarthritis with bone- on-bone contact medially and in the patellofemoral compartment. There is tricompartmental joint space narrowing with osteophyte formation and subchondral sclerosis. ASSESSMENT: Left knee end-stage osteoarthritis. PLAN: Left total knee arthroplasty with Dr. White. The patient's questions were answered and she would like to proceed. Dr. White discussed the risks and benefits of surgery at today's visit. The patient will follow up postoperatively and pain medications will be dispensed postoperatively. ADAIR PEÑA [id number]/[facility] #: [id number] ROYAL
[~2018-11-16 08:11] MED LIST changes: -Buffered Lidocaine 0.9% SYRIN* 5 ML/SYR SYRINGE INTRADERM ONE; +Buffered Lidocaine 1% SYRIN* 1 ML/SYRINGE INTRADERM ONE; +Dexamethasone IV* 4 MG/ML 1 ML (4 MG) IV SLOW PU ONE; +Tranexamic Acid 1,000 MG in NS 0.9% 50 ML* (outpatient use) IV SCH
--- OUTSIDE RECORDS SUMMARY | 2018-11-16 09:23 | XMS REPORT | Continuity of Care Document ---
:1965 External Reference #:[id number] Author Name Kristi White M.D. 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 Onset: 07/10/2017 Localized, primary osteoarthritis of the Kristi White M.D. Onset: 11/16/2017 pelvic region and thigh Arthroplasty of knee Kristi White M.D. Onset: 03/12/2018 Trochanteric bursitis Kristi White M.D. Onset: 07/14/2018 Morbid obesity Kristi White M.D. Onset: 07/14/2018 Gastroesophageal reflux disease Ren Grayson MD Onset: 10/14/2008 Note: biopsy of EG junction by Dr Stephen showed intestinal metaplasia; Juan C Kim after EGD changed omeprazole (5 yrs) to pantoprazole which was once a day then two and as of mid September 2018 back to once a day; Gastroparesis syndrome Giuliana Cheatham NP Onset: 10/14/2018 Note: Gastric Emptying Scan on OxyContin, Baclofen, Valium Chronic anxiety Ren Grayson MD Onset: 11/11/2018 Note: PTSD present - see Dr Villanueva ([facility] post op Feb 2018) - switched from Xanax to Valium after visit with Dr Painting (pt account) Abnormal weight gain Ren Grayson MD Onset: 07/10/2017 Note: 300 this date then 267 03/12/18 and 246 11/11/18 Alkaline phosphatase raised Ren Grayson MD Onset: 02/19/2016 Note: mildly elevated 02/19/16 (first LFTs at [facility] [place]) - with ALT 2/7 minimally elevated - highest 787 06/22/17; October 2018 LAY and AMA both negative Social History Type Date Description Comments Sex Unknown ETOH Use Denies alcohol use Tobacco Use Start: Unknown Patient is a former End: Unknown smoker Recreational Drug Use Current Drug User Smokes marijuana occasionally which helps her feel better Smoking Status Reviewed: 11/11/18 Patient is a former smoker Exercise Type/Frequency Exercises sporadically Allergies, Adverse Reactions, Alerts Description No Known Drug Allergies Medications Active Medications SIG Qnty Indications Ordering Provider Date Ranitidine HCL 1 capsule by 30caps Ren Grayson, 11/11/2018 300mg mouth after MD Capsules dinner CBD/THC w/grape seed oil Other Ordering 10/24/2018 - topical for Provider knees Diclofenac Sodium apply 2 grams to Unknown 1% affected area Gel twice daily Pantoprazole Sodium We will mesh now Unknown 1 by mouth every 40mg Solution Rec day Baclofen 5 mg twice daily Swanstrom, 10mg Tablets Halley Bah Valium 1 tablet twice Unknown 10mg Tablets daily Oxycontin takes 10 mg by Unknown 5mg Tab ER mouth as needed 12H Abuse-Det for pain History Medications Carafate one tablet once 30tabs Giuliana Cheatham NP 10/14/2018 - 1gm Tablets daily 10/28/2018 Medications Administered in Office Medication SIG Qnty Indications Ordering Provider Date Depomedrol 40MG Kristi White M.D. 07/14/2018 Injection Depomedrol 40MG Kristi White M.D. 07/14/2018 Injection Records Fee Kristi White M.D. 11/12/2017 Injection Synvisc Or Synvisc-One Injection 1 Kristi White M.D. 10/21/2017 MG Injection Synvisc Or Synvisc-One Injection 1 Kristi White M.D. 10/21/2017 MG Injection Synvisc Or Synvisc-One Injection 1 Kristi White M.D. 10/14/2017 MG Injection Synvisc Or Synvisc-One Injection 1 Kristi White M.D. 10/14/2017 MG Injection Synvisc Or Synvisc-One Injection 1 Kristi White M.D. 10/07/2017 MG Injection Synvisc Or Synvisc-One Injection 1 Kristi White M.D. 10/07/2017 MG Injection Depomedrol 40MG Kristi White M.D. 08/26/2017 Injection Depomedrol 40MG Kristi White M.D. 07/10/2017 Injection Depomedrol 40MG Kristi White M.D. 07/03/2017 Injection Depomedrol 40MG Kristi White M.D. 07/03/2017 Injection Immunizations Description No Information Available Vital Signs Date Vital Result Comment 11/11/2018 11:33am Height 66 inches 5'6" Weight 246.00 lb Heart Rate 68 /min BP Systolic 151 mmHg BP Diastolic 104 mmHg O2 % BldC Oximetry 95 % BMI (Body Mass Index) 39.7 kg/m2 11/10/2018 9:48am Height 66 inches 5'6" Weight 247.00 lb Heart Rate 70 /min BP Systolic 138 mmHg BP Diastolic 82 mmHg Body Temperature 98.0 F Pain Level 7 BMI (Body Mass Index) 39.9 kg/m2 Results Test Date Facility Test Result H/L Range Note CBC Auto 11/03/2018 [facility] White Blood 8.4 10^3/uL Normal 3.5-10.[address] [place] [address] [phone] Red Blood Count 4.76 10^6/uL Normal 3.70-4.87 Hemoglobin 13.5 g/dL Normal 12.0-16.0 Hematocrit 41 % Normal 35-47 Mean Corpuscular Volume 85 fL Normal 80-97 Mean Corpuscular Hemoglobin 28 pg Normal 27-31 Mean Corpuscular HGB Conc 33 g/dL Normal 31-36 Red Cell Distribution Width 14 % Normal 10-15 Platelet Count 285 10^3/uL Normal 150-450 Mean Platelet Volume 9.2 fL Normal 7.4-10.4 Abs Neutrophils 4.2 10^3/uL Normal 1.5-7.7 Abs Lymphocytes 3.2 10^3/uL Normal 1.0-4.8 Abs Monocytes 0.5 10^3/uL Normal 0-0.8 Abs Eosinophils 0.5 10^3/uL Normal 0-0.6 Abs Basophils 0.1 10^3/uL Normal 0-0.2 Abs Nucleated RBC 0.0 10^3/uL Granulocyte % 49.3 % Lymphocyte % 38.0 % Monocyte % 6.5 % Eosinophil % 5.5 % Basophil % 0.7 % Nucleated Red Blood Cells % 0.0 Inr/Protime 11/03/2018 [facility] Inr 0.88 Normal 0.82-1.[address] [place] [address] [phone] Laboratory test 11/03/2018 [facility] Partial 34.4 Normal 26.0 -38.[address] [place] [address] Time PTT [phone] Type & Screen 11/03/2018 [facility] Patient A Negative [address] [place] [address] [phone] Antibody Screen NEGATIVE Urinalysis Profile 11/03/2018 [facility] Urine Color Shana [address] [place] [address] [phone] Urine Appearance Cloudy Urine Specific [place] 1.024 Normal 1.010-1.030 Urine pH 5.0 Normal 5-9 Urine Urobilinogen Negative Negative Urine Ketones Negative Negative Urine Protein Negative Negative Urine Leukocytes 3+ Abnormal Negative Urine Blood 1+ Abnormal Negative Urine Nitrite Negative Negative Urine Bilirubin Negative Negative Urine Glucose Negative Negative Urine White Blood Cell 2+(11-20/hpf) Abnormal Absent Urine Red Blood Cell 3+(>10/hpf) Abnormal Absent Urine Bacteria 1+ Abnormal Absent Urine Squamous Epithelial Cell Present Abnormal Absent Comp Metabolic 11/03/2018 [facility] Sodium 137 mmol/L Normal 135-145 Panel [address] [place] [address] [phone] Potassium 4.5 mmol/L Normal 3.5-5.0 Chloride 103 mmol/L Normal 101-111 Co2 Carbon Dioxide 30 mmol/L Normal 22-32 Anion Gap 4 mmol/L Normal 2-11 Glucose 75 mg/dL Normal 70-100 Blood Urea Nitrogen 18 mg/dL Normal 6-24 Creatinine 1.02 mg/dL High 0.51-0.95 BUN/Creatinine Ratio 17.6 Normal 8-20 Calcium 9.6 mg/dL Normal 8.6-10.3 Total Protein 6.7 g/dL Normal 6.4-8.9 Albumin 3.9 g/dL Normal 3.2-5.2 Globulin 2.8 g/dL Normal 2-4 Albumin/Globulin Ratio 1.4 Normal 1-3 Total Bilirubin 0.50 mg/dL Normal 0.2-1.0 Alkaline Phosphatase 235 U/L High 34-104 Alt 49 U/L Normal 7-52 Ast 36 U/L Normal 13-39 Egfr Non- 56.7 >60 Egfr 68.6 >60 2 Urine Culture And 11/03/2018 [facility] Urine Culture SEE RESULT [address] [place] [address] [phone] Laboratory test 11/01/2018 [facility] Mitochondrial AB <0.1 U [address] [place] [address] [phone] Nuclear AB (Lay) By Ifa Igg <1:80 (Negative) 5 CBC No Diff 10/14/2018 [facility] White Blood 9.1 10^3/uL Normal 3.5-10.[address] [place] [address] [phone] Red Blood Count 4.87 10^6/uL Normal 3.70-4.87 Hemoglobin 13.8 g/dL Normal 12.0-16.0 Hematocrit 41 % Normal 35-47 Mean Corpuscular Volume 84 fL Normal 80-97 Mean Corpuscular Hemoglobin 28 pg Normal 27-31 Mean Corpuscular HGB Conc 34 g/dL Normal 31-36 Red Cell Distribution Width 14 % Normal 10-15 Platelet Count 285 10^3/uL Normal 150-450 Mean Platelet Volume 9.3 fL Normal 7.4-10.4 Comp Metabolic 10/14/2018 [facility] Sodium 136 mmol/L Normal 135-[address] [place] [address] [phone] Potassium 4.3 mmol/L Normal 3.5-5.0 Chloride 103 mmol/L Normal 101-111 Co2 Carbon Dioxide 28 mmol/L Normal 22-32 Anion Gap 5 mmol/L Normal 2-11 Glucose 84 mg/dL Normal 70-100 Blood Urea Nitrogen 18 mg/dL Normal 6-24 Creatinine 1.01 mg/dL High 0.51-0.95 BUN/Creatinine Ratio 17.8 Normal 8-20 Calcium 9.1 mg/dL Normal 8.6-10.3 Total Protein 6.9 g/dL Normal 6.4-8.9 Albumin 3.9 g/dL Normal 3.2-5.2 Globulin 3.0 g/dL Normal 2-4 Albumin/Globulin Ratio 1.3 Normal 1-3 Total Bilirubin 0.40 mg/dL Normal 0.2-1.0 Alkaline Phosphatase 216 U/L High 34-104 Alt 34 U/L Normal 7-52 Ast 31 U/L Normal 13-39 Egfr Non- 57.3 >60 Egfr 69.4 >60 6 Laboratory test 10/14/2018 [facility] C Reactive 9.87 mg/L High <8.[address] [place] [address] [phone] Hemoglobin A1c (Glyco HGB) 5.5 % Normal 4.0-5.6 7 Mitochondrial AB AMA M2 Igg <pending> Nuclear AB (Lay) By Ifa Igg <pending> 1 Standard intensity warfarin therapeutic range: 2.0-3.0 High intensity warfarin therapeutic range: 2.5-3.5 2 Because ethnic data is not always readily [...] 15-29 5 Kidney failure <15 (or dialysis) 3 SEE RESULT BELOW Name: MASSIEL SIMS : [address]: Kristi White MD Acct: [id number] Unit: [id number] AGE: 53 Location: [facility] Re11/03/18 SEX: F Status: REG REF SPEC: [id number] EUGENIA: 11/03/18-[address] [facility] [address]: Kristi White MD REQ: [id number] RECD: 11/03/18 STATUS: SUMMER SINGH DR: Juan C Kim 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 END OF REPORT DEPARTMENT OF PATHOLOGY, [address] [place] [address] Jose Carlos Beck M.D. Director [facility] # [id number] 4 REFERENCE VALUE <0.1 (Negative) Test Performed by: [facility] - [address] [address] 5 <1:80 (Negative) REFERENCE VALUE <1:80 (Negative) Test Performed by: [address] [address] 6 Because ethnic data is not always readily [...] 15-29 5 Kidney failure <15 (or dialysis) 7 Therapeutic target for the treatment of diabetes mellitus patients is <7% HBA1C, and in selective patients <6.0%. Please refer to [place] [employer] diabetic care guidelines for further information. Procedures Date Code Description Status 07/14/2018 93981 Inject/Drain Joint/Bursa Major W/O US Completed 08/12/2017 [id number] Colonoscopy Completed Medical Devices Description No Information Available Encounters Type Date Location Provider Dx Diagnosis Office Visit 11/01/2018 [facility] Gastroenterology Giuliana Cheatham NP R74.8 Abnormal levels 10:30a of other serum enzymes R79.82 Elevated C-reactive protein (CRP) Office Visit 10/14/2018 11:15a [facility] Gastroenterology Giuliana K22.70 Lima' s ALTA Cheatham esophagus without dysplasia K21.0 Gastro-esophageal reflux disease with esophagitis R11.0 Nausea R74.8 Abnormal levels of other serum enzymes K31.84 Gastroparesis Office Visit 07/28/2018 8:45a [facility] Kristi White, M25.562 Pain in left Of C.M.A. M.D. knee M25.462 Effusion, left knee M17.12 Unilateral primary osteoarthritis, left knee Office Visit 07/14/2018 8:30a [facility] Kristi White, M25.561 Pain in right Of C.M.A. M.D. knee Z96.651 Presence of right artificial knee joint M70.61 Trochanteric bursitis, right hip M70.62 Trochanteric bursitis, left hip M25.552 Pain in left hip M25.551 Pain in right hip M16.11 Unilateral primary osteoarthritis, right hip M16.12 Unilateral primary osteoarthritis, left hip E66.01 Morbid (severe) obesity due to excess calories Assessments Date Code Description Provider 11/11/2018 R74.8 Abnormal levels of other serum enzymes Ren Grayson MD 11/11/2018 K22.70 Lima's esophagus without dysplasia Ren Grayson MD 11/11/2018 K21.0 Gastro-esophageal reflux disease with Ren Grayson MD esophagitis 11/11/2018 R11.0 Nausea Ren Grayson MD 11/11/2018 K31.84 Gastroparesis Ren Grayson MD 11/11/2018 M25.562 Pain in left knee Ren Grayson MD 11/11/2018 R63.4 Abnormal weight loss Ren Grayson MD 11/10/2018 M17.12 Unilateral primary osteoarthritis, left knee Kristi White M.D. 11/01/2018 R74.8 Abnormal levels of other serum enzymes Giuliana Cheatham NP 11/01/2018 R79.82 Elevated C-reactive protein (CRP) Giuliana Cheatham NP 10/14/2018 K22.70 Lima's esophagus without dysplasia Giuliana Cheatham, ALTA 10/14/2018 K21.0 Gastro-esophageal reflux disease with Giuliana Cheatham NP esophagitis 10/14/2018 R11.0 Nausea Giuliana Cheatham, ALTA 10/14/2018 R74.8 Abnormal levels of other serum enzymes Giuliana Cheatham NP 10/14/2018 K31.84 Gastroparesis Giuliana Cheatham, ALTA 07/28/2018 M25.562 Pain in left knee Kristi White M.D. 07/28/2018 M25.462 Effusion, left knee Kristi White M.D. 07/28/2018 M17.12 Unilateral primary osteoarthritis, left knee Kristi White M.D. 07/14/2018 M25.561 Pain in right knee Kristi White M.D. 07/14/2018 Z96.651 Presence of right artificial knee joint Kristi White M.D. 07/14/2018 M70.61 Trochanteric bursitis, right hip Kristi White M.D. 07/14/2018 M70.62 Trochanteric bursitis, left hip Kristi White M.D. 07/14/2018 M25.552 Pain in left hip Kristi White M.D. 07/14/2018 M25.551 Pain in right hip Kristi White M.D. 07/14/2018 M16.11 Unilateral primary osteoarthritis, right hip Kristi White M.D. 07/14/2018 M16.12 Unilateral primary osteoarthritis, left hip Kristi White M.D. 07/14/2018 E66.01 Morbid (severe) obesity due to excess Kristi White M.D. calories Plan of Treatment Future Appointment(s):12/24/2018 8:30 am - Giuliana Cheatham NP at [facility] Fkuslzclbtgkohrn13/17/2019 1:20 pm - Scarlet Perales MD at [facility] Internal Medicine - Ccmob12/10/2018 8:30 am - Kristi White M.D. at [facility]11/26/2018 8:15 am - Kristi White M.D. at [facility]11/10/2018 - Kristi White M.D.M17.12 Unilateral primary osteoarthritis, left kneeFollow up:Follow up: 10-14 days postop Functional Status Description No Information Available Mental Status Description No Information Available Referrals Description No Information Available
--- OUTSIDE RECORDS SUMMARY | 2018-11-16 09:24 | XMS REPORT | Continuity of Care Document ---
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 [phone] Problems Active Problems Provider Date Localized, primary [...] EG junction by Dr Stephen showed intestinal metaplasia Gastroparesis syndrome Giuliana Cheatham NP Onset: 10/14/2018 Note: on OxyContin, Baclofen, Valium Social History Type Date Description Comments Sex Unknown ETOH Use Denies alcohol use Tobacco Use Start: Unknown Patient is a former End: Unknown smoker Recreational Drug Use Current Drug User Smokes marijuana occasionally which helps her feel better Smoking Status Reviewed: 11/01/18 Patient is a former smoker Exercise Type/Frequency Exercises sporadically Allergies, Adverse Reactions, Alerts Description No Known Drug Allergies Medications Active Medications SIG Qnty Indications Ordering Provider Date CBD/THC w/grape seed oil Other Ordering 10/24/2018 Provider Carafate one tablet once 30tabs Giuliana Cheatham NP 10/14/2018 1gm Tablets daily Diclofenac Sodium apply 2 grams to Unknown 1% affected area Gel twice daily Pantoprazole Sodium We will mesh now Unknown 1 by mouth every 40mg Solution Rec day Baclofen 5 mg twice daily Swanstrom, 10mg Tablets Halley Bah Valium 1 tablet twice Unknown 10mg Tablets daily Oxycontin takes 10 mg by Unknown 5mg Tab ER mouth as needed 12H Abuse-Det for pain Medications Administered in Office Medication SIG Qnty [...] Available Vital Signs Date Vital Result Comment 11/01/2018 10:51am Height 66 inches 5'6" Weight 249.00 lb Heart Rate 65 /min BP Systolic 139 mmHg BP Diastolic 99 mmHg O2 % BldC Oximetry 96 % BMI (Body Mass Index) 40.2 kg/m2 10/14/2018 11:27am Height 66 inches 5'6" Weight 251.00 lb Heart Rate 67 /min BP Systolic 142 mmHg left wrist BP Diastolic 101 mmHg left wrist O2 % BldC Oximetry 95 % BMI (Body Mass Index) 40.5 kg/m2 Results Test Date Facility Test Result H/L Range Note CBC No Diff 10/14/2018 [facility] White Blood 9.1 10^3/uL Normal 3.5-10.[address] [place] [address] [phone] Red Blood Count 4.87 10^6/uL Normal 3.70-4.87 Hemoglobin 13.8 g/dL Normal 12.0-16.0 Hematocrit 41 % Normal 35-47 Mean Corpuscular Volume 84 fL Normal 80-97 Mean Corpuscular Hemoglobin 28 pg Normal 27-31 Mean Corpuscular HGB Conc 34 g/dL Normal 31-36 Red Cell Distribution Width 14 % Normal 10-15 Platelet Count 285 10^3/uL Normal 150-450 Mean Platelet Volume 9.3 fL Normal 7.4-10.4 Comp Metabolic 10/14/2018 [facility] Sodium 136 mmol/L Normal 135-[address] [place] [address] [phone] Potassium 4.3 mmol/L Normal 3.5-5.0 Chloride 103 [...] Egfr Non- 57.3 >60 Egfr 69.4 >60 1 Laboratory test 10/14/2018 [facility] C Reactive 9.87 mg/L High <8.[address] [place] [address] [phone] Hemoglobin A1c (Glyco HGB) 5.5 % Normal 4.0-5.6 2 Mitochondrial AB AMA M2 Igg <pending> Nuclear AB (Lay) By Ifa Igg <pending> 1 Because ethnic data is not always readily [...] 15-29 5 Kidney failure <15 (or dialysis) 2 Therapeutic target for the treatment of diabetes mellitus patients is <7% HBA1C, and in selective patients <6.0%. Please refer to [place] [employer] diabetic care guidelines for further information. Procedures Date Code Description Status 07/14/2018 43159 Inject/Drain Joint/Bursa Major W/O US Completed 08/12/2017 [id number] Colonoscopy Completed Medical Devices Description No Information Available Encounters Type Date Location Provider Dx Diagnosis Office Visit 11/01/2018 [facility] Gastroenterology Giuliana Cheatham NP R74.8 Abnormal levels 10:30a of other serum enzymes R79.82 Elevated C-reactive protein (CRP) Office Visit 10/14/2018 11:15a [facility] Gastroenterology Giuliana K22.70 Lima' s ALTA Cheatham [...] excess calories Assessments Date Code Description Provider 11/01/2018 R74.8 Abnormal levels of other serum enzymes Giuliana Cheatham NP 11/01/2018 R79.82 Elevated C-reactive protein (CRP) Giuliana Cheatham NP 10/14/2018 K22.70 Lima's esophagus without dysplasia Giuliana Cheatham NP 10/14/2018 K21.0 Gastro-esophageal reflux disease with Giuliana Cheatham NP esophagitis 10/14/2018 R11.0 Nausea Giuliana Cheatham NP 10/14/2018 R74.8 Abnormal levels of other serum enzymes Giuliana Cheatham NP 10/14/2018 K31.84 Gastroparesis Giuliana Cheatham NP 07/28/2018 M25.562 Pain in left knee Kristi [...] Morbid (severe) obesity due to excess calories Krsiti White M.D. Plan of Treatment Future Appointment(s):11/11/2018 11:30 am - Ren Grayson MD at [facility] Gljfcmadrzzvgteo44/10/2019 11:30 am - Kristi White M[facility]. at [facility]/10/[facility] 9:30 am - Kristi White M.D. at [facility]11/01/2018 - Giuliana Cheatham, NPR74.8 Abnormal levels of other serum enzymesNew Labs:Mitochondrial AB AMA M2 Igg, Ordered: 11/01/18Nuclear AB (Lay) By Ifa Igg, Ordered: 11/01/18New Xrays:US Liver, Ordered: 11/01/18R79.82 Elevated C-reactive protein (CRP) Functional Status Description No Information Available Mental Status Description No Information Available Referrals Description No Information Available
--- OUTSIDE RECORDS SUMMARY | 2018-11-16 09:24 | XMS REPORT | Continuity of Care Document ---
:1965 External Reference #:[id number] Author Name Ren Grayson MD (transmitted by agent of provider Kiko Farr) Address [address] [place] [address] Care Team Providers Name Role Phone Juan C Kim NP - Family Care Team Information Emergency Telecommunications Dispatcher [phone] Problems Active Problems Provider Date Localized, primary [...] Chronic anxiety Ren Grayson MD Onset: 11/11/2018 Social History Type Date Description Comments Sex [...] Ordering 10/24/2018 - topical for Provider knees Carafate one tablet once 30tabs Giuliana Cheatham [...] Result H/L Range Note CBC Auto 11/03/2018 [facility] White Blood 8.4 10^3/uL Normal 3.5-10.[address] [place] [address] [phone] Red Blood Count 4.76 10^6/uL Normal 3.70-4.87 [...] Red Blood Cells % 0.0 Inr/Protime 11/03/2018 [facility] Inr 0.88 Normal 0.82-1.[address] [place] [address] [phone] Laboratory test 11/03/2018 [facility] Partial 34.4 Normal 26.0 -38.[address] [place] [address] Time PTT [phone] Type & Screen 11/03/2018 [facility] Patient A Negative [address] [place] [place] [address] [phone] Antibody Screen NEGATIVE Urinalysis Profile 11/03/2018 [facility] Urine Color Shana [address] [place] [address] [phone] Urine Appearance Cloudy Urine Specific [place] 1.024 Normal 1.010-1.030 Urine pH 5.0 Normal [...] Cell Present Abnormal Absent Comp Metabolic 11/03/2018 [facility] Sodium 137 mmol/L Normal 135-[address] [place] [address] [phone] Potassium 4.5 mmol/L Normal 3.5-5.0 Chloride 103 [...] 68.6 >60 2 Urine Culture And 11/03/2018 [facility] Urine Culture SEE RESULT [address] [place] [address] [phone] Laboratory test 11/01/2018 [facility] Mitochondrial AB <0.1 U [address] [place] [address] [phone] Nuclear AB (Lay) By Ifa Igg <1:80 (Negative) 5 CBC No Diff 10/14/2018 [facility] White Blood 9.1 10^3/uL Normal 3.5-10.[address] [place] [address] [phone] Red Blood Count 4.87 10^6/uL Normal 3.70-4.87 Hemoglobin 13.8 g/dL Normal 12.0-16.0 Hematocrit 41 % Normal 35-47 Mean Corpuscular Volume 84 fL Normal 80-97 Mean Corpuscular Hemoglobin 28 pg Normal 27-31 Mean Corpuscular HGB Conc 34 g/dL Normal 31-36 Red Cell Distribution Width 14 % Normal 10-15 Platelet Count 285 10^3/uL Normal 150-450 Mean Platelet Volume 9.3 fL Normal 7.4-10.4 Comp Metabolic 10/14/2018 [facility] Sodium 136 mmol/L Normal 135-[address] [place] [address] [phone] Potassium 4.3 mmol/L Normal 3.5-5.0 Chloride 103 [...] Egfr 69.4 >60 6 Laboratory test 10/14/2018 [facility] C Reactive 9.87 mg/L High <8.[address] [place] [address] [phone] Hemoglobin A1c (Glyco HGB) 5.5 % Normal [...] (or dialysis) 3 SEE RESULT BELOW Name: MADELAINE SIMS : [address]: Kristi White MD Acct: [id number] Unit: [id number] AGE: 53 Location: [facility] Re11/03/18 SEX: F Status: REG REF SPEC: [id number] EUGENIA: 11/03/[address] [facility] [address]: Kristi White MD REQ: [id number] RECD: 11/03/18 STATUS: SUMMER SINGH DR: Juan C Kim AUTOMATIC CIGAR WRAPPER TENDER _ SOURCE: URINE SPDESC: ORDERED: Urine Culture QUERIES: Urine Source: Random Procedure Result Reported Site Urine Culture Final 11/04/18- 1220 ML No growth of clinically significant organisms * ML - Main Lab . END OF REPORT DEPARTMENT OF PATHOLOGY, [address] [place] [address] Jose Carlos Beck M.D. Director TAWNYA # [id number] 4 REFERENCE VALUE <0.1 (Negative) Test Performed by: [facility] [address] [place] [address] 5 <1:80 (Negative) REFERENCE VALUE <1:80 (Negative) Test Performed by: [facility] [address] 6 Because ethnic data is not always [...] in selective patients <6.0%. Please refer to [place] [employer] diabetic care guidelines for further information. Procedures Date Code Description Status 07/14/2018 70529 Inject/Drain Joint/Bursa Major W/O US Completed 08/12/2017 47173122 Colonoscopy Completed Medical Devices Description No Information Available Encounters Type Date Location Provider Dx Diagnosis Office Visit 11/01/2018 [facility] Gastroenterology Giuliana Cheatham NP R74.8 Abnormal levels 10:30a of other serum enzymes R79.82 Elevated C-reactive protein (CRP) Office Visit 10/14/2018 11:15a 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 M.D. knee M25.462 Effusion, left knee M17.12 Unilateral primary osteoarthritis, left knee Office Visit 07/14/2018 8:30a [facility] Kristi Christopher, M25.561 Pain in right Of C.M.A. M.D. knee Z96.651 Presence of right artificial knee joint M70.61 Trochanteric bursitis, right hip M70.62 Trochanteric bursitis, left hip M25.552 Pain in left hip M25.551 Pain in right hip M16.11 Unilateral primary osteoarthritis, right hip M16.12 Unilateral primary osteoarthritis, left hip E66.01 Morbid (severe) obesity due to excess calories Assessments Date Code Description Provider 11/10/2018 M17.12 Unilateral primary osteoarthritis, left knee [...] M.D. 07/14/2018 M25.552 Pain in left hip Piedad Wilson.DAbiola 07/14/2018 M25.551 Pain in right hip Piedad Wilson.DAbiola 07/14/2018 M16.11 Unilateral primary osteoarthritis, right hip Kristi White M.D. 07/14/2018 M16.12 Unilateral primary osteoarthritis, left hip Kristi White M.D. 07/14/2018 E66.01 Morbid (severe) obesity due to excess calories Kristi White M.D. Plan of Treatment Future Appointment(s):12/10/2018 8:30 am - Krist[facility]11/26/2018 8:15 am - Kristi White M.D. at [facility]11/16/2018 9:30 am - LUDMILA Moses at [facility]11/16/2018 9:30 am - Jak Almodovar PA-C at [facility]12/20/2018 4:00 pm - Scarlet Perales MD at [facility] - [facility]11/16/2018 9:30 am - Kristi White M.D. at [facility] Functional Status Description No Information Available Mental Status Description No Information Available Referrals Description No Information Available
--- OUTSIDE RECORDS SUMMARY | 2018-11-16 09:24 | XMS REPORT | Continuity of Care Document ---
:1965 External Reference #:[id number] Author Name Kristi White M.D. (transmitted by agent of provider Sophia Pena) Address [address] [facility] [place] [address] Care Team Providers Name Role Phone Juan C Kim NP - Family Care Team Information Hydrostatic Tubing Tester [phone] Problems Active Problems Provider Date Localized, primary osteoarthritis Kristi Whiet M.D. Onset: 07/10/2017 Localized, primary osteoarthritis of [...] helps her feel better Smoking Status Reviewed: 11/10/18 Patient is a former smoker Exercise Type/Frequency [...] Rec day Baclofen 5 mg twice daily Ugoanstrom, 10mg Tablets Halley Bah Valium 1 tablet [...] Available Vital Signs Date Vital Result Comment 11/10/2018 9:48am Height 66 inches 5'6" Weight 247.00 lb Heart Rate 70 /min BP Systolic 138 mmHg BP Diastolic 82 mmHg Body Temperature 98.0 F Pain Level 7 BMI (Body Mass Index) 39.9 kg/m2 11/01/2018 10:51am Height 66 inches 5'6" Weight 249.00 lb Heart Rate 65 /min BP Systolic 139 mmHg BP Diastolic 99 mmHg O2 % BldC Oximetry 96 % BMI (Body Mass Index) 40.2 kg/m2 Results Test Date Facility Test Result H/L Range Note CBC Auto 11/03/2018 [facility] White Blood 8.4 10^3/uL Normal 3.5-10.[address] [place] [address] [phone] Red Blood Count 4.76 10^6/uL Normal 3.70-4.87 [...] Red Blood Cells % 0.0 Inr/Protime 11/03/2018 [facility] Inr 0.88 Normal 0.82-1.[address] [place] [address] [phone] Laboratory test 11/03/2018 [facility] Partial 34.4 Normal 26.0 -38.[address] [address] Time PTT [phone] Type & Screen 11/03/2018 [facility] Patient A Negative [address] [place] [address] [phone] Antibody Screen NEGATIVE Urinalysis Profile 11/03/2018 [facility] Urine Color Shana [address] [place] [address] [phone] Urine Appearance Cloudy Urine Specific [place] 1.024 Normal 1.010-1.030 Urine pH 5.0 Normal [...] Cell Present Abnormal Absent Comp Metabolic 11/03/2018 [facility] Sodium 137 mmol/L Normal 135-145 [place] [address] [phone] Potassium 4.5 mmol/L Normal 3.5-5.0 Chloride 103 [...] 68.6 >60 2 Urine Culture And 11/03/2018 [facility] Urine Culture SEE RESULT [address] [place] [address] [phone] Laboratory test 11/01/2018 [facility] Mitochondrial AB <0.[address] AMA M2 [place] [address] [phone] Nuclear AB (Lay) By Ifa Igg <1:80 (Negative) 5 CBC No Diff 10/14/2018 [facility] White Blood 9.1 10^3/uL Normal 3.5-10.[address] [place] [address] [phone] Red Blood Count 4.87 10^6/uL Normal 3.70-4.87 Hemoglobin 13.8 g/dL Normal 12.0-16.0 Hematocrit 41 % Normal 35-47 Mean Corpuscular Volume 84 fL Normal 80-97 Mean Corpuscular Hemoglobin 28 pg Normal 27-31 Mean Corpuscular HGB Conc 34 g/dL Normal 31-36 Red Cell Distribution Width 14 % Normal 10-15 Platelet Count 285 10^3/uL Normal 150-450 Mean Platelet Volume 9.3 fL Normal 7.4-10.4 Comp Metabolic 10/14/2018 [facility] Sodium 136 mmol/L Normal 135-[address] [place] [address] [phone] Potassium 4.3 mmol/L Normal 3.5-5.0 Chloride 103 [...] Egfr 69.4 >60 6 Laboratory test 10/14/2018 [facility] C Reactive 9.87 mg/L High <8.[address] [place] [address] [phone] Hemoglobin A1c (Glyco HGB) 5.5 % Normal [...] 3 SEE RESULT BELOW Name: MADELAINE SIMS Maurizio : [address]: Kristi White MD Acct: [id number] Unit: [id number] AGE: 53 Location: [facility] Re11/03/18 SEX: F Status: REG REF SPEC: [id number] EUGENIA: 11/03/18-[address] [facility] [address]: Kristi White MD REQ: [id number] RECD: 11/03/18 STATUS: SUMMER SINGH DR: Juan C Kim TELEVISION PROGRAM DIRECTOR _ SOURCE: URINE SPDESC: ORDERED: Urine Culture QUERIES: Urine Source: Random Procedure Result Reported Site Urine Culture Final 11/04/18- 1220 ML No growth of clinically significant organisms * ML - Main Lab . END OF REPORT DEPARTMENT OF PATHOLOGY, [address] [place] [address] Jose Carlos Beck M.D. Director TAWNYA # [id number] 4 REFERENCE VALUE <0.1 (Negative) Test Performed by: [facility] [address] [place] [address] 5 <1:80 (Negative) REFERENCE VALUE <1:80 (Negative) Test Performed by: [facility] [address] [facility], [place] [address] 6 Because ethnic data is not always [...] in selective patients <6.0%. Please refer to [place] [employer] diabetic care guidelines for further information. Procedures Date Code Description Status 07/14/2018 42217 Inject/Drain Joint/Bursa Major W/O US Completed 08/12/2017 [id number] Colonoscopy Completed Medical Devices Description No Information Available Encounters Type Date Location Provider Dx Diagnosis Office Visit 11/01/2018 [facility] Gastroenterology Giuliana Cheatham NP R74.8 Abnormal levels 10:30a of other serum enzymes R79.82 Elevated C-reactive protein (CRP) Office Visit 10/14/2018 11:15a [facility] Gastroenterology Giuliana K22.70 Lima' s ALTA Cheatham [...] Kristi White M.D. at [facility]11/26/2018 8:15 am - Kristi White M.D. at [facility].11/16/2018 9:30 am - LUDMILA Moses at [facility].11/16/2018 9:30 am - Jak Almodovar PA-C at [facility].12/20/2018 4:00 pm - Scarlet [facility]erales [facility] - Kristi White M.D. at [facility].11/10/2018 - Kristi White M.D.M17.12 Unilateral primary osteoarthritis, left kneeFollow up:Follow up: 10-14 days postop Functional Status Description No Information Available Mental Status Description No Information Available Referrals Description No Information Available
[2018-11-16] MEDS ORDERED: Dexamethasone IV* 4 MG/ML 1 ML (4 MG) ONE (09:39)
[2018-11-16] MEDS ORDERED: ceFAZolin 2 GM in NS PREMIX(*) 2 GM/100 ML BAG IVPB ONE (09:40)
[2018-11-16] MEDS ORDERED: Buffered Lidocaine 1% SYRIN* 1 ML/SYRINGE INTRADERM ONE (10:04)
[2018-11-16] MEDS ORDERED: KETAMINE HCL* 50 MG/ML 10 ML VIAL ONE (11:18)
[2018-11-16] MEDS ORDERED: Bupivacaine 0.5% SDV PF* 30ML VIAL ONE (11:18)
[2018-11-16] MEDS ORDERED: Ondansetron INJ* 2 MG/ML VIAL ONE (11:18)
[2018-11-16] MEDS ORDERED: Midazolam* 1 MG/ML 5 ML VIAL (5 MG) ONE ×2 (11:18→11:47)
[2018-11-16] MEDS ORDERED: Propofol* 10 MG/ML 20 ML BTL ONE ×2 (11:18→12:14)
[2018-11-16] MEDS ORDERED: ROPIVACAINE 5 MG/ML 30 ML BTL (0.5%) ONE ×2 (11:24→11:53)
[2018-11-16] MEDS ORDERED: DiMENhydriNATE IV* 50 MG/ML VIAL IV PUSH PRN (12:31)
[2018-11-16] MEDS ORDERED: fentaNYL* 50 MCG/ML 2 ML VIAL (100 MCG VIAL) IV PRN (12:31)
[2018-11-16] MEDS ORDERED: Naloxone* 0.4 MG/ML 1 ML VIAL IV PRN (12:31)
[2018-11-16] MEDS ORDERED: HYDROmorphone INJ1* 1 MG/ML SYRINGE IV PRN (12:31)
[2018-11-16] MEDS ORDERED: Ondansetron INJ* 2 MG/ML VIAL IV PRN (12:31)
[2018-11-16] MEDS ORDERED: Propofol* 500 MG/50 ML BTL ONE (12:42)
[2018-11-16] MEDS ORDERED: Ondansetron ODT TAB* 4 MG PO PRN (14:17)
[2018-11-16] MEDS ORDERED: Morphine INJ* 2 MG/ML 1 ML SYRINGE (TWO MG - NEW SYRINGE VERSION) IV PRN (14:17)
[2018-11-16] MEDS ORDERED: diPHENhydraMINE IV* 50 MG/ML 1 ml VIAL (BENADRYL) IV PRN (14:17)
[2018-11-16] MEDS ORDERED: diPHENhydraMINE PO* 25 MG PO PRN (14:17)
[2018-11-16] MEDS ORDERED: oxyCODONE TAB* 5 MG TAB PO PRN (14:21)
[2018-11-16] MEDS ORDERED: Lactated Ringers 1000 ML Bag* 1,000 ML IV SCH (15:00)
[2018-11-16] MEDS ORDERED: traMADol TAB* 50 MG PO PRN (17:05)
[2018-11-16] MEDS: oxyCODONE TAB* 5 MG TAB PO PRN ×2 (18:08→22:33)
[2018-11-16] MEDS: Cyclobenzaprine TAB* 10 MG PO PRN (18:35)
[2018-11-16] MEDS: Diazepam TAB(*) 10 MG PO SCH (19:23)
[2018-11-16] MEDS ORDERED: Morphine INJ* 2 MG/ML 1 ML SYRINGE (TWO MG - NEW SYRINGE VERSION) ONE (19:41)
[2018-11-16] MEDS ORDERED: Morphine TAB Extended Release (*) 30 MG TAB.ER ONE (19:41)
[2018-11-16] MEDS: Morphine INJ* 2 MG/ML 1 ML SYRINGE (TWO MG - NEW SYRINGE VERSION) IV PRN ×2 (19:44→21:36)
[2018-11-16] MEDS: Morphine TAB Extended Release (*) 30 MG TAB.ER PO SCH ×2 (19:49→20:33)
[2018-11-16] MEDS: Pantoprazole TAB * 40 MG TAB PO SCH (20:10)
[2018-11-16] MEDS: ceFAZolin 1 GM ADVAN(*) 1 GM in NS 0.9% 50 ML* 50 ML IVPB SCH (20:13)
[2018-11-16] MEDS: Ondansetron INJ* 2 MG/ML VIAL IV PRN (20:25)
--- NOTE | 2018-11-16 21:35 | OP ---
Operative Report - Blank - Operative Report Date of Operation: 11/16/18 Note: MASSIEL SIMS 1965 Date of Surgery: 11/16/18 Kristi White MD Engineer Byproduct: Oralia BORRERO did help throughout the procedure with preparation of the knee, wound retraction, manipulation of the knee, and wound closure. Anesthesiologist: Oralia Maldonado MD Anesthesia Type: Spinal Preoperative Diagnosis: Left severe degenerative osteoarthritis of the knee Postoperative Diagnosis: As above Procedure Performed: Left Total Knee Arthroplasty Tourniquet time: 43 minutes Complications: None Specimen: Bone and cartilage from the left knee joint sent to pathology. Hardware Used: Cemented Deutsch and Nephew total knee hardware was used - For the femur a size 6 left narrow oxinium legion posterior stabilized femoral component , for the tibia a size 5 left lenin II tibial baseplate, for the insert a size 9mm 5-6 posterior stabilized articular polyethylene insert, and for the patella a size 32 3-peg all poly patella. Brief History/Indication: MASSIEL SIMS was known in clinic and had a history of severe left knee pain and swelling. She failed conservative treatment with anti-inflammatories, pain pills, intra-articular injections and physical therapy. She elected to undergo left total knee arthroplasty due to continued pain and decreased quality of life. Radiographs showed severe end stage osteoarthritis of the knee with bone on bone contact. Informed consent was obtained from the patient. She understood the risks of surgery included but were not limited to: bleeding, infection, damage to nearby structures, intraoperative fracture, nerve palsy, failure of the hardware, early loosening, knee stiffness or loss of motion, anesthesia complications, stroke, heart attack , blood clot and . She wished to proceed. Intra-Operative Findings: Intraoperatively the patient was noted to have severe loss of cartilage in all 3 compartments of the knee. Description of the Procedure: MASSIEL SIMS was identified in the preanesthesia unit. Her left knee was marked as the correct operative side. Informed consent was signed and placed in the chart. The patient was taken to the operating room and placed under anesthesia without complication. A garcia catheter was placed. A tourniquet was placed on the left thigh. The left lower extremity was prepped and draped in the usual sterile fashion. Preoperative time-out was made to correctly identify the patient, side and site. Appropriate intraoperative antibiotics were given within one hour of incision. Tourniquet was inflated. A midline incision was made and carried sharply down to the extensor mechanism. A new 10 blade was used to make a standard medial parapatellar arthrotomy. The patella was subluxed laterally. Electrocautery was used to dissect soft tissue off the superomedial tibia to the midsagittal plane. The knee was flexed up. The anterior horn of the lateral meniscus and the ACL were sharply incised. A drill was used to enter the distal femur. The intramedullary distal femoral cutting guide was pinned on the distal femur. The oscillating saw was used to make the distal femoral cut. The external rotation guide was pinned on the distal femur and the distal femur was sized to a size 6. The size 6 multi-cutting jig was pinned on the distal femur. The oscillating saw was used to make the appropriate 4 chamfer cuts. Next the PCL was completely released. The extramedullary tibial cutting guide was pinned on the proximal tibia and the oscillating saw was used to make the proximal tibial cut perpendicular to the mechanical axis of the tibia. The bone was carefully removed. The knee was brought out into full extension. The spacer block was placed and had excellent fit with the knee in full extension. The medial and lateral ligaments were well balanced. The flexion and extension gaps were well balanced. The knee was flexed up. Lamina burrer hand was placed both medially and laterally. Any remaining meniscus was removed with electrocautery. Curved osteotome was used to remove any posterior osteophytes. The tibial tray and drop noel were placed and confirmed a satisfactory tibial cut. The size 6 left narrow femoral trial was impacted onto the distal femur. This trial had excellent fit and stability. The box for the posterior stabilized implant was prepared using a box cut osteotome and a reamer. Next a tibial tray trial and 9 mm insert trial was placed. The knee was taken through a range of motion and had full extension to 130 degrees of flexion. Patellofemoral tracking was satisfactory. The patella was inverted and sized to a size 32. Three peg holes were drilled through the size 32 drill guide. The trial patella was placed and the knee was taken through a range of motion. There was satisfactory patellofemoral tracking. All trials were removed. The tibia was subluxed anteriorly and sized to a size 5. The proximal tibial was prepared with a size 5 keel punch. All bony cut surfaces were irrigated with sterile saline and dried. Final implants were cemented into place starting with the tibia, followed by the femur, and last the patella. A 9 mm insert trial was placed and the knee was brought into full extension. Tourniquet was turned down and the knee was copiously irrigated with sterile saline. Electrocautery was used to obtain meticulous hemostasis. Once the cement had fully cured, the insert trial was removed. Any excess cement was removed from around the hardware and capsule. Final insert chosen was a 9 mm posterior stabilized Lenin II articular insert size 5-6. Stability of the insert was checked and noted to be stable. The extensor mechanism was closed using number 1 vicryls. The rest of the incision was closed in a layered fashion using 0 and 2-0 vicryls. The skin was closed using 3-0 nylon suture. Sterile xeroform, 4x4s and webril were used to cover the incision. Obie wrap and cold pack were used to cover the dressings. The patients anesthesia was reversed without difficulty. She was taken to the PACU in stable condition. Intended weight-bearing will be as tolerated.
[2018-11-16] MEDS: Docusate CAP* 100 MG PO SCH (21:47)
[2018-11-16] MEDS: Sucralfate TAB* 1 GM PO SCH (21:48)
[2018-11-16] MEDS: Magnesium Hydroxide LIQ* 30 ML UDC PO SCH (21:48)
[2018-11-16] MEDS: HYDROmorphone INJ1* 1 MG/ML SYRINGE IV PRN (23:43)
[2018-11-17] MEDS: HYDROmorphone INJ1* 1 MG/ML SYRINGE IV PRN ×6 (02:11→19:54)
[2018-11-17] MEDS: oxyCODONE TAB* 5 MG TAB PO PRN ×5 (02:37→18:48)
[2018-11-17] MEDS: ceFAZolin 1 GM ADVAN(*) 1 GM in NS 0.9% 50 ML* 50 ML IVPB SCH ×2 (04:00→12:22)
[2018-11-17] MEDS: Pantoprazole TAB * 40 MG TAB PO SCH ×2 (05:29→20:04)
[2018-11-17 05:37] LABS: Hematocrit 40 % (35-47); Hemoglobin 13.3 g/dL (12.0-16.0); Mean Platelet Volume 9.2 fL (7.4-10.4); Platelet Count 293 10^3/uL (150-450)
[2018-11-17 05:53] LABS: BUN/Creatinine Ratio 17.4 (8-20); EGFR African American 77.3 (>60); EGFR Non-African American 63.9 (>60); Potassium 4.3 mmol/L (3.5-5.0)
[2018-11-17] MEDS: Ondansetron INJ* 2 MG/ML VIAL IV PRN (06:13)
[2018-11-17] MEDS: Diazepam TAB(*) 10 MG PO SCH ×3 (07:25→20:41)
[2018-11-17] MEDS: Morphine TAB Extended Release (*) 30 MG TAB.ER PO SCH ×2 (07:25→20:04)
--- NOTE | 2018-11-17 07:41 | PN ---
Progress Note - Progress Note Date of Service: 11/17/18 SOAP: Subjective: []Pt seen and examined at bedside. She had significant pain overnight, she continues to report pain of the left knee and soreness of the left thigh. Denies CP, SOB, dizziness, nausea. Objective: []Gen: NAD, laying comfortably in bed LLE: Dressing CDI. thigh is soft, df/pf intact, DP2+, sensation intact to light touch distally Calves supple and nontender without erythema, edema or palpable cords Assessment: []POD 1 sp LTK Plan: [WBAT PT/OT eliquis 2.5 mg po bid x 30 days post op Pain medication management by Dr White only Anticipate DC home tomorrow with VNS Vital Signs Temp 98.6 F 11/17/18 07:21 Pulse 97 11/17/18 07:21 Resp 18 11/17/18 07:25 BP 138/87 11/17/18 07:21 Pulse Ox 96 11/17/18 07:21 Intake & Output 11/16/18 11/17/18 11/17/18 18:59 06:59 18:59 Intake Total 100 1637 Output Total 1450 910 Balance -1350 727 Weight 243 lb Intake: IV Fluids 100 983 LR 983 NS 100ML, Cefazolin 2G 100 IVPB 54 ABX - CEFAZOLIN 54 Oral 600 Output: Urine 60 Yusuf 1450 600 Emesis 250 Laboratory Last Values Hgb 13.3 g/dL (12.0-16.0) 11/17/18 05:24 Hct 40 % (35-47) 11/17/18 05:24 Plt Count 293 10^3/uL (150-450) 11/17/18 05:24 MPV 9.2 fL (7.4-10.4) 11/17/18 05:24 Sodium 137 mmol/L (135-145) 11/17/18 05:24 Potassium 4.3 mmol/L (3.5-5.0) 11/17/18 05:24 Chloride 102 mmol/L (101-111) 11/17/18 05:24 Carbon Dioxide 30 mmol/L (22-32) 11/17/18 05:24 Anion Gap 5 mmol/L (2-11) 11/17/18 05:24 BUN 16 mg/dL (6-24) 11/17/18 05:24 Creatinine 0.92 mg/dL (0.51-0.95) 11/17/18 05:24 Est GFR ( Amer) 77.3 (>60) 11/17/18 05:24 Est GFR (Non-Af Amer) 63.9 (>60) 11/17/18 05:24 BUN/Creatinine Ratio 17.4 (8-20) 11/17/18 05:24 Glucose 142 mg/dL (70-100) H 11/17/18 05:24 Calcium 9.0 mg/dL (8.6-10.3) 11/17/18 05:24
[2018-11-17] MEDS: Apixaban* 2.5 MG TAB PO SCH ×2 (09:00→20:41)
[2018-11-17] MEDS: Docusate CAP* 100 MG PO SCH ×2 (09:00→20:41)
[2018-11-17] MEDS: Magnesium Hydroxide LIQ* 30 ML UDC PO SCH ×2 (09:00→20:42)
[2018-11-17] MEDS: Vitamin THERAPEUTIC TAB PO SCH (09:01)
[2018-11-17] MEDS: Sucralfate TAB* 1 GM PO SCH ×2 (09:01→20:42)
[2018-11-17] MEDS: Cyclobenzaprine TAB* 10 MG PO PRN ×2 (10:50→17:54)
[2018-11-18] MEDS: HYDROmorphone INJ1* 1 MG/ML SYRINGE IV PRN ×3 (01:21→09:27)
[2018-11-18] MEDS: Magnesium Hydroxide LIQ* 30 ML UDC PO PRN ×2 (05:51→12:28)
[2018-11-18] MEDS: Pantoprazole TAB * 40 MG TAB PO SCH (05:51)
[2018-11-18 07:08] LABS: Hematocrit 38 % (35-47); Hemoglobin 12.9 g/dL (12.0-16.0); Platelet Count 256 10^3/uL (150-450)
[2018-11-18] MEDS: Diazepam TAB(*) 10 MG PO SCH ×2 (07:28→12:28)
[2018-11-18] MEDS: Morphine TAB Extended Release (*) 30 MG TAB.ER PO SCH (07:30)
[2018-11-18] MEDS: Magnesium Hydroxide LIQ* 30 ML UDC PO SCH (08:24)
[2018-11-18] MEDS: Apixaban* 2.5 MG TAB PO SCH (08:31)
[2018-11-18] MEDS: Sucralfate TAB* 1 GM PO SCH (08:31)
[2018-11-18] MEDS: Vitamin THERAPEUTIC TAB PO SCH (08:31)
[2018-11-18] MEDS: oxyCODONE TAB* 5 MG TAB PO PRN ×2 (08:31→12:29)
[2018-11-18] MEDS: Docusate CAP* 100 MG PO SCH (08:31)
[2018-11-18 12:20] VITALS: BP 140/86
--- NOTE | 2018-11-18 12:20 | DS ---
Orthopedic Discharge Summary - Discharge Summary Date of Admission:11/16/18 Date of Discharge: 11/18/18 Date of Surgery: 11/16/18 Attending Orthopedic Provider: Dr White Pre-operative Diagnosis: Left knee osteoarthritis Operative Procedure: left total knee replacement Disposition of Patient: home with vns Condition of Patient: stable History: MASSIEL SIMS is a 53 year old F with years of increasingly severe left knee pain. Patient has failed conservative management and has elected to undergo a left total knee replacement Hospital Course: MASSIEL was admitted to [facility] on 11/16/18. Patient underwent a left total knee replacement without complication followed by a brief recovery in PACU and transfer to the Short Stay Surgical Unit in stable condition. Our hospitalist service, physical therapy and occupational therapy also participated in this patients care. Post-op day 1: patient was alert and in no acute distress. Dressing was clean, dry and intact. Operative extremity dorsiflexion and plantarflexion intact, sensation intact to light touch distally, DP2+. Post-op day two: dressing was changed, incision was clean , dry and intact. Patient was deemed to be medically and orthopedically stable for discharge. Physical therapy goals were met. Home Medications Medication Instructions Recorded Confirmed Type Diclofenac 1% GEL (NF) [Voltaren 1 applic TOPICAL QID PRN 08/06/17 11/16/18 History 1% GEL (NF)] Baclofen TAB* Lioresal TAB* 5 mg PO BID AC 02/17/18 11/16/18 History Diazepam TAB(*) [Valium TAB(*)] 5 mg PO BID 02/17/18 11/16/18 History Diazepam TAB(*) [Valium TAB(*)] 10 mg PO BEDTIME 02/17/18 11/16/18 History Pantoprazole TAB * [Protonix TAB*] 40 mg PO BID 02/17/18 11/16/18 History Sucralfate TAB* [Carafate*] 1 gm PO BID 02/17/18 11/16/18 History Nystatin CREAM* [Nystatin Cream*] 1 applic TOPICAL TID PRN 11/03/18 11/16/18 History Polyethylene Glycol 3350 [Miralax] 17 gm PO SEE INSTRUCTIONS PRN 11/03/18 History Senna TAB 8.6 mg* [Senokot 8.6 mg 8.6 tab PO BID PRN 11/03/18 11/16/18 History TAB*] Apixaban* [Eliquis*] 2.5 mg PO BID #60 tab 11/18/18 Rx Docusate CAP* [Colace Cap*] 100 mg PO BID PRN #90 cap 11/18/18 Rx Morphine TAB Extended Rel(*) [Ms 30 mg PO BID@0800,2000 PRN #6 11/18/18 Rx Contin(*)] tab.er MDD 2 oxyCODONE TAB* [Roxycodone TAB 5 5 mg PO Q4H PRN tab MDD 10 11/18/18 Rx mg*] oxyCODONE TAB* [Roxycodone TAB 5 10 mg PO Q4H PRN #70 tab MDD 10 11/18/18 Rx mg*] Discharge Instructions following Orthopedic Surgery: Activity: * Weight Bearing as tolerated * Continue physical therapy and occupational therapy exercises as shown * Home PT Wound care: * OK to shower on post-op day 3, no bathing, swimming, or submerging wound. * Use gentle soap, pat dry. Cover with gauze, MARCIAL wrap or tape. * Visiting home nurse to do wound checks. Call Orthopedic office for: * Increased drainage * Redness * Increased pain * Fever Go to ER with shortness of breath or chest pain. Diet: * Regular diet * Increase fluids and fiber to prevent constipation. * Continue to use stool softeners, call office if no bowel motion within 48 hours. Medications See Home Medication List in your packet for medications that you should take after discharge. DVT Prophylaxis: Eliquis Dosin.5 mg, 1 tab every 12 hours x 30 days. Increases bleeding tendency Pain Control: oxycodone 5 mg Dosin mg 1 tab for mild pain and 2 tabs for moderate pain by mouth every 4-6 hours as needed for pain. Maximum of 10 tabs per day. Hold for sedation, wean off as soon as pain allows ms contin 30 mg 1 tab every 12 hours as needed for severe pain, hold for sedation and wean off as soon as pain allows. wean off of this med first then off of oxycodone. Antibiotics are required prior to any dental work. FOLLOW UP: Follow up with [Christopher ] Within 10-14 days, call for appointment Please call our office with any questions or concerns ([phone]) RX to [facility]
[2018-11-18] MEDS ORDERED: Bisacodyl SUPP* 10 MG SUPP PR PRN (14:18)
== END 2018-11-18 14:21 | disposition home health service (06) | DRG 302 ==
LOC: AA 09:20 → SSU 14:18
PROVIDERS: ADMIT Orthopaedic Surgery Adult Reconstructive Orthopaedic Surgery; ATTEND Orthopaedic Surgery Adult Reconstructive Orthopaedic Surgery
PROC: 0SRD069 Replacement of Left Knee Joint with Oxidized Zirconium on Polyethylene Synthetic Substitute, Cemented, Open Approach (ICD-10-PCS; principal; 2018-11-16 12:00)
DX: M17.12 Unilateral primary osteoarthritis, left knee (principal); E66.01 Morbid (severe) obesity due to excess calories; F41.9 Anxiety disorder, unspecified; K21.9 Gastro-esophageal reflux disease without esophagitis; I10 Essential (primary) hypertension; E78.00 Pure hypercholesterolemia, unspecified; F43.10 Post-traumatic stress disorder, unspecified; Z96.651 Presence of right artificial knee joint; G89.29 Other chronic pain; M54.9 Dorsalgia, unspecified; M25.462 Effusion, left knee; M25.762 Osteophyte, left knee; K31.84 Gastroparesis; F60.3 Borderline personality disorder; M16.0 Bilateral primary osteoarthritis of hip; Z83.3 Family history of diabetes mellitus; Z82.49 Family history of ischemic heart disease and other diseases of the circulatory system; Z68.39 Body mass index [BMI] 39.0-39.9, adult; Z81.1 Family history of alcohol abuse and dependence; Z83.49 Family history of other endocrine, nutritional and metabolic diseases; Z90.49 Acquired absence of other specified parts of digestive tract; Z82.3 Family history of stroke; Z87.891 Personal history of nicotine dependence; Z82.62 Family history of osteoporosis
CPT/HCPCS: 36415; 80048; 85014; 85018; 85049; 88305; 88311; A9270-GY; C1776; J0690; J1100; J1170; J2250; J2270; J2405; J2704; J2795; J3490